=== PATIENT | male | born 1955 | race Caucasian/White ===

== ENCOUNTER 2024-04-17 11:08 | Outpatient (AMB) | payer OTHER, SELFPAY ==
--- NOTE | 2024-04-17 11:23 | MHC.PC.OV ---
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 Intake Note: patient here for new patient visit/ follow up Manager Agricultural Required: No Allergies Penicillins [PENICILLINS] Allergy (Unknown, Verified 04/17/24 11:26) UNKNOWN Tobacco use date assessed: 04/17/24 Fall risk assessment: 1 Fall in past year Last assessed Fall Risk: 04/17/24 Dental Screening Dental Screen Date: 04/17/24 Did you have a dental visit in the last 12 months?: Yes Did you have a dental problem in the last 6 months where you did not have access to dental care?: No Was dental information given to patient?: Patient has dentist HPI HPI Comments History of Present Illness Details This is a 68 year old male with a past medical history of type 2 dm, htn, obesity, fatty liver, depression presenting for follow up Type 2 DM: not checking sugars. Thinks its probably bad. Only on actos, glipizide. Intolerant of metformin. Prone tinea. GLP too expensive. Has not agreed to insulin. Having jock rash. also with non healing boil, pimple on hairline neck CV: Blood pressure higher today. on chlorthalidone 25mg daily. Intolerant MASTER/ARB ROS see HPI PHYSICAL EXAM: GENERAL: Alert and oriented x 3. NAD EYES: EOMI. Anicteric. HENT: Moist mucous membranes. No scleral icterus. No cervical lymphadenopathy. LUNGS: Clear to auscultation bilaterally. CARDIOVASCULAR: Regular rate and rhythm. No murmur. No JVD. ABDOMEN: Soft, non-tender +bs EXTREMITIES: No edema. Non-tender. SKIN: No rashes or lesions. Warm. NEUROLOGIC: No focal neurological deficits. CN II-XII grossly intact PSYCHIATRIC: Cooperative. Appropriate mood and affect [facility] Surgical History (Updated 04/17/24 @ 11:41 by Viky Forrest) H/O discectomy Hx of appendectomy Family History (Updated 04/17/24 @ 11:43 by Viky Forrest) Mother Diabetes Father Cardiovascular disease Social History Housing: House Patient Tobacco Use Status: Current everyday Tobacco user Tobacco use type: Cigar e-Cigarette/Vaping Use: Never Used Second Hand Smoke Exposure: No service: No Current occupational status: retired Current occupational exposures/hazards: No Cognitive needs: No Hearing needs: Yes Vision needs: Yes Questionnaire PHQ-9 Over the last 2 weeks, how often have you been bothered by any of the following problems? 1. Little interest or pleasure in doing things: not at all 2. Feeling down, depressed, or hopeless: not at all 3. Trouble falling or staying asleep, or sleeping too much: not at all 4. Feeling tired or having little energy: not at all 5. Poor appetite or overeating: not at all 6. Feeling bad about yourself - or that you are a failure or have let yourself or your family down: not at all 7. Trouble concentrating on things, such as reading the newspaper or watching television: not at all 8. Moving or speaking so slowly that other people could have noticed. Or the opposite - being so fidgety or restless that you have been moving around a lot more than usual: not at all 9. Thoughts that you would be better off or of hurting yourself in some way: not at all Total score: 0 Depression Screening Interpretation: Negative Depression Screening Done: Yes 71149 - PHQ-9 Billing: Yes Source: Developed by Drs. Ricardo Malni, Dee Mary, Fabio Coleman and colleagues, with an educational gerardo from [employer]. Thrive Questionnaire Date Thrive assessed: 04/17/24 I am a: Patient What is your living situation today?: I have a steady place to live Within the past 12 months, did the food you bought not last and you didn't have the money to get more?: Never true Within the past 12 months, did you worry whether your food would run out before you got money to buy more?: Never true Do you have trouble paying for medicines?: No Do you have trouble getting transportation to medical appointments?: No Do you have trouble paying your heating and electricity bill?: No Do you have trouble taking care of your child, family member or friend?: No Do you have trouble with day-to-day activities such as bathing, preparing meals, shopping, managing finances, etc.?: No Are you currently unemployed and looking for a job?: No Are you interested in more education?: No Please select the resources that you would like help with: None Currently or been in a relationship where the following occur: No concerns reported THRIVE Score: 0 AUDIT C Alcohol Use Questionnaire (AUDIT-C) 1. How often do you have a drink containing alcohol?: 4 or more times a week 2. How many drinks containing alcohol do you have on a typical day when you are drinking?: 1 or 2 3. How often do you have six or more drinks on one occasion?: Never Total Score: 4 ARELI-7 AMB Questionnaire ARELI-7 Date ARELI - 7 assessed: 04/17/24 Feeling nervous, anxious, or on edge: 0 = Not at all Not being able to stop or control worryin = Not at all Worrying too much about different things: 0 = Not at all Trouble relaxin = Not at all Being so restless that it is hard to sit still: 0 = Not at all Becoming easily annoyed or irritable: 0 = Not at all Feeling afraid as if something awful might happen: 0 = Not at all Total ARELI-7 score (0-4 normal; 5-9 mild; 10-14 moderate; 15-21 severe): 0 Source: Developed by Drs. Ricardo Malin, Dee Mary, Fabio Coleman and colleagues, with an educational gerardo from [employer]. ARELI-7 Assessment Billing ARELI-7 Assessment Tool: ARELI-7 Assessment 20549 Physical exam (Primary Care) Vital Signs: Last Vital Signs Temp 97.8 F 04/17/24 11:30 Pulse 76 04/17/24 11:30 Resp 16 04/17/24 11:30 BP 150/70 H 04/17/24 11:30 Pulse Ox 97 04/17/24 11:30 Oxygen Delivery Method Room Air 04/17/24 11:30 BMI result Body Mass Index 45.0 Tobacco/Smoking Status: Tobacco use Status Tobacco use date assessed 04/17/24 04/17/24 11:37 Patient Tobacco Use Status Current everyday Tobacco 04/17/24 11:37 Tobacco use type Cigar 04/17/24 11:37 e-Cigarette/Vaping Use Never Used 04/17/24 11:37 PHQ-9: PHQ-9 Score PHQ-9: Total score 0 04/17/24 11:39 Depression Screening Interpretation: Negative Thrive Assessment: Date of Thrive Assessment Date Thrive assessed 04/17/24 04/17/24 11:39 Currently or been in a relationship where the following occur: No concerns reported Assessment and Plan Assessment & Plan (1) Type 2 diabetes mellitus: Code(s): E11.9 - Type 2 diabetes mellitus without complications Qualifiers: Diabetes mellitus long term care pharmacist insulin use: with custodial use Diabetes mellitus complication status: with hyperglycemia Qualified Code(s): E11.65 - Type 2 diabetes mellitus with hyperglycemia; 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 start insulin. stop glipizide. continue actos (2) Hypertension: Code(s): I10 - Essential (primary) hypertension Qualifiers: Hypertension type: primary hypertension Qualified Code(s): I10 - Essential (primary) hypertension (3) Tinea cruris: Code(s): B35.6 - Tinea cruris Plan: fluconazole sent (4) Boil: Code(s): L02.92 - Furuncle, unspecified (5) Insulin use (long-term) in type 2 diabetes: Code(s): E11.9 - Type 2 diabetes mellitus without complications; 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 Qualifiers: Diabetes mellitus complication status: with neurologic complications Diabetes mellitus complication detail: with polyneuropathy Qualified Code(s): E11.42 - Type 2 diabetes mellitus with diabetic polyneuropathy; 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 Orders: Orders Complete Blood Count Auto Diff 04/17/24 B35.6 - Tinea cruris, E11.9 - Type 2 diabetes mellitus without complications, I10 - Essential (primary) hypertension, L02.92 - Furuncle, unspecified Comprehensive Met. Panel 04/17/24 B35.6 - Tinea cruris, E11.9 - Type 2 diabetes mellitus without complications, I10 - Essential (primary) hypertension, L02.92 - Furuncle, unspecified Hemoglobin A1c 04/17/24 B35.6 - Tinea cruris, E11.9 - Type 2 diabetes mellitus without complications, I10 - Essential (primary) hypertension, L02.92 - Furuncle, unspecified Lipid Panel 04/17/24 B35.6 - Tinea cruris, E11.9 - Type 2 diabetes mellitus without complications, I10 - Essential (primary) hypertension, L02.92 - Furuncle, unspecified Microalbumin, Random (w Creat) 04/17/24 B35.6 - Tinea cruris, E11.9 - Type 2 diabetes mellitus without complications, I10 - Essential (primary) hypertension, L02.92 - Furuncle, unspecified Medications: New fluconazole 150 mg PO DAILY 10 days 10 tabs 0RF insulin glargine (Lantus Solostar U-100 Insulin) 20 units (0.2 mL) subcut QAM 90 days 18 mL 3RF FreeStyle Lite Meter (blood-glucose meter) As directed 1 ea 0RF NS E11.9 - Type 2 diabetes mellitus without complications, 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 FreeStyle Lancets (lancets) As directed 100 ea 3RF NS E11.9 - Type 2 diabetes mellitus without complications doxycycline hyclate 100 mg PO BID 10 days 20 tabs 0RF BD Ultra-Fine Kathy Pen Needle (pen needle, diabetic) As directed 100 ea 3RF NS E11.9 - Type 2 diabetes mellitus without complications, Z79.4 - [facility] (current) use of insulin FreeStyle Lite Strips (blood sugar diagnostic) As directed 100 ea 3RF NS E11.9 - Type 2 diabetes mellitus without complications, Z79.4 - [facility] (current) use of insulin Coding Level of Care Code Est Pt Level 5 (59989) Diagnoses Type 2 diabetes mellitus with hyperglycemia, with long-term current use of insulin E11.65; Z79.4 Diabetes mellitus custodial insulin use: with custodial use Diabetes mellitus complication status: with hyperglycemia Primary hypertension I10 Hypertension type: primary hypertension Tinea cruris B35.6 Boil L02.92 Type 2 diabetes mellitus with diabetic polyneuropathy, with long-term current use of insulin E11.42; Z79.4 Diabetes mellitus complication status: with neurologic complications Diabetes mellitus complication detail: with polyneuropathy Additional Codes ARELI-7 Assessment Billing - ARELI-7 Assessment Tool: ARELI-7 Assessment [id number] ([id number])
[2024-04-17 11:30] VITALS: BP 150/70; PULSE 76; RESP 16; TEMP 36.6; O2SAT 97; BMI 45.0
== END 2024-04-17 13:33 | disposition home or self-care (01) ==
PROVIDERS: PCP Internal Medicine; Visit Provider Internal Medicine
DX: E11.65 Type 2 diabetes mellitus with hyperglycemia (principal); Z79.4 Long term (current) use of insulin; E11.42 Type 2 diabetes mellitus with diabetic polyneuropathy; I10 Essential (primary) hypertension; B35.6 Tinea cruris; L02.92 Furuncle, unspecified
CPT/HCPCS: 99214

== ENCOUNTER 2024-04-17 12:16 | Outpatient (REF) | payer OTHER, SELFPAY ==
[2024-04-17 14:16] LABS: MANUAL DIFF FLAG NO
[2024-04-17 14:25] LABS: Basophils Absolute Auto 0.1 X10*3/uL (0.0-0.2); Basophils Percent Auto 0.8 % (0-2); Eosinophils Absolute Auto 0.1 X10*3/uL (0.0-0.4); Eosinophils Percent Auto 1.8 % (0-4); Hematocrit 42.6 % (42.0-52.0); Hemoglobin 14.4 g/dl (14.0-18.0); Imm Gran Abs Auto 0.03 X10*3/uL (0.00-0.03); Imm Gran Pct Auto 0.5 % (0.0-0.4); Lymphocytes Absolute Auto 1.7 X10*3/uL (1.2-4.9); Lymphocytes Percent Auto 28.8 % (20-40); Mean Corpuscular HGB Conc 33.8 g/dl (31.0-36.0); Mean Corpuscular Hemoglobin 29.3 pg (27.0-33.0); Mean Corpuscular Volume 86.6 fL (80.0-98.0); Mean Platelet Volume 10.3 fL (9.4-12.4); Monocytes Absolute Auto 0.6 X10*3/uL (0.1-1.2); Monocytes Percent Auto 9.5 % (2-11); Neutrophils Absolute Auto 3.5 x10*3/uL (2.0-8.3); Neutrophils Percent Auto 58.6 % (45-73); Platelet Count 169 X10*3/uL (160-400); Red Blood Count 4.92 X10*6/uL (4.60-5.80); Red Cell Distribution Width 14.6 % (11.0-16.0)
[2024-04-17 14:36] LABS: Estimated Average Glucose 209 mg/dL; Hemoglobin A1c % 8.9 % (<6.0)
[2024-04-17 15:12] LABS: Alanine Aminotransferase 21 U/L (0-40); Alkaline Phosphatase 64 U/L (39-117); Anion Gap 13 (12-20); Aspartate Amino Transferase 14 U/L (5-37); Bilirubin Total 0.5 mg/dL (0.0-1.0); Blood Urea Nitrogen 25 mg/dL (9-16); Calcium 9.2 mg/dL (8.4-10.2); Carbon Dioxide 28 mmol/L (22-29); Chloride 99 mmol/L (96-108); Cholesterol 154 mg/dL (<200); Estimated Glomerular Filt Rate 50; Glucose Random 255 mg/dL (60-115); HDL Cholesterol 48 mg/dL (>40); LDL Cholesterol Calculated 90 mg/dL (<100); Sodium 136 mmol/L (135-145); Total Protein 6.7 g/dL (6.5-8.0); Triglycerides 82 mg/dL (<150)
== END 2024-04-17 12:17 | disposition home or self-care (01) ==
LOC: HO.WFDLDS 12:16
PROVIDERS: Visit Provider Internal Medicine
DX: I10 Essential (primary) hypertension (principal); E11.9 Type 2 diabetes mellitus without complications; B35.6 Tinea cruris; L02.92 Furuncle, unspecified
CPT/HCPCS: 36415; 80053; 80061; 83036; 85025

== ENCOUNTER 2024-04-28 13:57 | Outpatient (REF) | payer OTHER, SELFPAY ==
[2024-04-28 14:42] LABS: Creatinine Urine 28.97 mg/dL; Microalbum/Creatinine Ratio Ur 44.8 ug/mg cr (<30)
== END 2024-04-28 13:58 | disposition home or self-care (01) ==
LOC: HO.LNP 13:57
PROVIDERS: Visit Provider Internal Medicine
DX: I10 Essential (primary) hypertension (principal); E11.9 Type 2 diabetes mellitus without complications; B35.6 Tinea cruris; L02.92 Furuncle, unspecified
CPT/HCPCS: 82043; 82570

== ENCOUNTER 2024-10-02 12:55 | Outpatient (AMB) | payer OTHER, SELFPAY ==
--- NOTE | 2024-10-02 13:04 | A.OFFVIS_ITS ---
Vital Signs 10/02/24 13:05 Height 6 ft Weight 326 lb 4.546 oz BMI 44.2 BP 140/80 H Blood Pressure Location Rt brachial Position Sitting Pulse 85 Pulse Source Pulse Oximeter Intake Visit Reasons: Type 2 diabetes mellitus-confirmed Intake Note: NEW Patient presents today to establish treatment for Type 2 Diabetes Mellitus: Last Diabetic eye exam was on: DUE Last Podiatry exam was on: Does not see a [employer]aker Most recent HbA1c: 9.3%, 10/02/2024 Random Glucose- 203 mg/dL, Today Violin Mechanic Required: No Accompanied by: Self / Same As Patient Allergies Penicillins [PENICILLINS] Allergy (Unknown, Verified 10/02/24 13:29) UNKNOWN HPI Comments Details: This is a 68-year-old male with a past medical history of obstructive sleep apnea on CPAP, uncontrolled type 2 diabetes, tinea cruris, hypertension and hyperlipidemia presenting for an initial consult for diabetic management. The patient has a glucometer, but he does not check his blood sugar. Hemoglobin a1c 9.3% 10/02/2024. Current regimen: He takes pioglitazone 45 mg once daily. He took Mounjaro, but the co-pay was 200 dollars per month. The same thing happened with TrulicPlaydom. He tried to go through [facility], but he was not eligible. Glipizide was stopped to start insulin. He was on Lantus, but he discontinued it in June because he had a rash in his groin. Patient says he does get frequent tinea and sometimes boils. He felt that the Lantus caused an exacerbation of this. He had diarrhea on Metformin. He does not recall if it was immediate release or extended release. He was on Januvia, but he reports this also caused adverse side effects. Compliance issues: He is compliant with pioglitazone. Patient has carbohydrates and proteins. He enjoys drinking scotch. He does not exercise consistently. Hypoglycemia symptoms: None Hyperglycemia symptoms: Polyuria Eye exam: Up-to-date and no retinopathy per patient Microvascular complications: neuropathy, nephropathy (recent tests consistent with CKD stage IIIA and microalbuminuria) Macrovascular complications: None Hypertension: treated with chlorthalidone 25 mg. Blood pressure is uncontrolled. His blood pressure today is 140/80, and it was 150/70 on 04/17/2024. Hyperlipidemia: treated with Pravastatin, but he stopped taking in June. He will restart it. Patient endorses chronic discoloration of his toenail on the left side and toenail fungus on the right. He also has chronic redness around the left toenail. He has an appointment with the criminal defense lawyer at [place] on 10/28/2024. ROS: Constitutional: No unexplained weight loss, fevers, chills or fatigue. Eyes: No vision changes Respiratory: No shortness of breath Cardiovascular: No chest pain Gastrointestinal: No anorexia, nausea, vomiting or diarrhea. No abdominal pain Neurologic: +numbness, tingling and burning in his feet. Skin: No open wound. Physical exam: Constitutional: Alert, in no distress. Neck: Supple, Full range of motion. No lymphadenopathy. Respiratory: Clear to auscultation. Cardiovascular: S1 S2 regular. No murmurs. Right foot: Warm and well perfused. No clubbing, cyanosis or edema. Severely decreased vibratory sensation. Absent sensation to monofilament in the great toe. The right great toenail is thickened, yellowish and deformed. Left foot: Warm and well perfused. No clubbing, cyanosis or edema. Absent vibratory sensation. Absent sensation to monofilament in the great toe. The left great toenail is thickened and yellowish, and there is dark brown discoloration of most of the nail. [facility] Medical History (Updated 10/02/24 @ 14:31 by KOMAL Allison) Hyperlipidemia Uncontrolled type 2 diabetes mellitus with hyperglycemia, with long-term current use of insulin Diabetic nephropathy Surgical History (Updated 04/17/24 @ 11:41 by Viky Forrest MA) H/O discectomy Hx of appendectomy Family History (Updated 04/17/24 @ 11:43 by Viky Forrest MA) Mother Diabetes Father Cardiovascular disease Social History Housing: House Patient Tobacco Use Status: Current everyday Tobacco user Tobacco use type: Cigar e-Cigarette/Vaping Use: Never Used Second Hand Smoke Exposure: No service: No Current occupational status: retired Current occupational exposures/hazards: No Cognitive needs: No Hearing needs: Yes Vision needs: Yes Physical Exam Vital Signs: Last Vital Signs Pulse 85 10/02/24 13:05 BP 140/80 H 10/02/24 13:05 BMI result Body Mass Index 44.2 Results AMB Hemoglobin A1c AMB Hemoglobin A1c 9.3 % Last Edit by LARRY Howell on 10/02/24 13:27 Results Reviewed Results Reviewed: Laboratory Last Values Glucose (Clinic) 203 mg/dL (60-115) H 10/02/24 13:10 Laboratory Tests 04/17/24 04/28/24 10/02/24 12:18 10:57 13:27 Creatinine 1.41 H Estimated GFR 50 Hgb A1c (Clinic) 9.3 H Hemoglobin A1c % 8.9 H AST 14 ALT 21 Triglycerides 82 Cholesterol 154 LDL Cholesterol, Calc 90 HDL Cholesterol 48 Urine Creatinine 28.97 Urine Microalbumin 13.0 Microalb/Creat Ratio 44.8 H Assessment & Plan Assessment & Plan (1) Uncontrolled type 2 diabetes mellitus with hyperglycemia, with long-term current use of insulin: Code(s): E11.65 - Type 2 diabetes mellitus with hyperglycemia; 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.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 Category: Medical (2) Diabetic nephropathy: Code(s): E11.21 - Type 2 diabetes mellitus with diabetic nephropathy Category: Medical Qualifiers: Diabetes mellitus type: type 2 Qualified Code(s): E11.21 - Type 2 diabetes mellitus with diabetic nephropathy (3) Hypertension: Code(s): I10 - Essential (primary) hypertension Category: Medical Qualifiers: Hypertension type: primary hypertension Qualified Code(s): I10 - Essential (primary) hypertension (4) Hyperlipidemia: Code(s): E78.5 - Hyperlipidemia, unspecified Category: Medical Qualifiers: Hyperlipidemia type: pure hypercholesterolemia Qualified Code(s): E78.00 - Pure hypercholesterolemia, unspecified Plan In summary this is a 68-year-old male with uncontrolled type 2 diabetes with microvascular complications. Discussed pathophysiology of Type II Diabetes Mellitus with the patient in detail.? I explained the intermodal customer service risks and complications associated with uncontrolled diabetes including nephropathy, neuropathy, peripheral vascular disease, retinopathy, increased risk of heart disease and stroke.? Discussed lifestyle modification with the patient. Medication options are somewhat limited due to history of adverse reactions and high co-pay for GLP1. Continue pioglitazone 45 mg once daily. Start Tresiba 10 units nightly. We may consider trial of metformin extended release if he was on immediate release in the past which caused stomach upset, but we would need to confirm that immediate release is what he took. Patient prone to yeast infections and therefore not a great candidate for SGLT2 at this time. If this problem resolves with improved glycemic control we can reconsider it. He does have nephropathy. I have submitted a prescription for the CGM. This requires prior authorization. Instructed to call when he receives it from the pharmacy to set up an appointment with the nurse informatics educator. He declined referral to nurse informatics educator at this time. Declines referral to dietitian. If patient does not have CGM he is not willing to be compliant with fingerstick glucometer monitoring. He does agree to check fasting sugars daily for the week prior to her next visit if he does not have CGM for the sake of assessing his response to insulin. If you experience low blood sugar, treat this by eating a chewable fruit candy like skittles or jelly beans (about 8 pieces), 4 ounces (1/2 cup) of fruit juice (not diet), 1 tablespoon of honey or 4 glucose tablets. If your blood sugar is under 50, take double the amount of one of the above. Recheck your blood sugar in 15 minutes. Restart Pravastatin 20 mg. Start losartan 25 mg daily for uncontrolled hypertension and renal protection. Side effects reviewed with the patient including hyperkalemia and angioedema. Patient will have lab work done in 6 weeks to re-evaluate lipid profile back on the statin and check renal function and potassium on losartan. Screening BNP level ordered. A podiatry appointment scheduled 10/28/2024. Follow up in 4 weeks for type 2 diabetes. Orders: Orders AMB Hemoglobin A1c Today E11.65 - Type 2 diabetes mellitus with hyperglycemia, Z79.4 - residential (current) use of insulin B Type Natriuretic Peptide 6 Weeks E11.42 - Type 2 diabetes mellitus with diabetic polyneuropathy, E11.9 - Type 2 diabetes mellitus without complications, Z79.4 - residential (current) use of insulin Comprehensive Met. 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 Start Tresiba 10 units nightly. I have submitted a prescription for the CGM. This requires prior authorization. If you receive the sensors and reader from the pharmacy, please call the office to set up an appointment with the nurse informatics educator. If you experience low blood sugar, treat this by eating a chewable fruit candy like skittles or jelly beans (about 8 pieces), 4 ounces (1/2 cup) of fruit juice (not diet), 1 tablespoon of honey or 4 glucose tablets. If your blood sugar is under 50, take double the amount of one of the above. Recheck your blood sugar in 15 minutes. Restart Pravastatin 20 mg. Start Losartan 25 mg daily for blood pressure. Please have labwork done fasting in 6 weeks. Please check fasting blood sugar daily for 1 week prior to next visit. Coding Level of Care Code New Pt Level 5 (15967) Complex EM visit Add On G2211 Diagnoses Uncontrolled type 2 diabetes mellitus with hyperglycemia, with long-term current use of insulin E11.65; Z79.4 Diabetic nephropathy associated with type 2 diabetes mellitus E11.21 Diabetes mellitus type: type 2 Primary hypertension I10 Hypertension type: primary hypertension Pure hypercholesterolemia E78.00 Hyperlipidemia type: pure hypercholesterolemia Time Spent (min) 65 Comment Chart review, direct patient care, completing documentation
[2024-10-02 13:05] VITALS: BP 140/80; PULSE 85; BMI 44.2
[2024-10-02 13:15] LABS: Glucose, Whole Blood 203 mg/dL (60-115)
== END 2024-10-02 14:04 | disposition home or self-care (01) ==
PROVIDERS: PCP Internal Medicine; Visit Provider Physician Assistant Medical
DX: E11.65 Type 2 diabetes mellitus with hyperglycemia (principal); Z79.4 Long term (current) use of insulin; E11.21 Type 2 diabetes mellitus with diabetic nephropathy; I10 Essential (primary) hypertension; E78.00 Pure hypercholesterolemia, unspecified

== ENCOUNTER 2024-11-19 10:27 | Outpatient (REF) | payer OTHER, SELFPAY ==
[2024-11-19 14:02] LABS: B Type Natriuretic Peptide 12 pg/mL (<100)
[2024-11-19 14:53] LABS: Alanine Aminotransferase 21 U/L (0-40); Albumin Level 4.3 g/dL (3.5-5.0); Alkaline Phosphatase 47 U/L (39-117); Anion Gap 11 (12-20); Aspartate Amino Transferase 19 U/L (5-37); Bilirubin Total 0.4 mg/dL (0.0-1.0); Blood Urea Nitrogen 16 mg/dL (9-16); Carbon Dioxide 30 mmol/L (22-29); Chloride 100 mmol/L (96-108); Cholesterol 171 mg/dL (<200); Estimated Glomerular Filt Rate 59; Glucose Random 123 mg/dL (60-115); HDL Cholesterol 51 mg/dL (>40); LDL Cholesterol Calculated 109 mg/dL (<100); Potassium 3.7 mmol/L (3.3-5.1); Sodium 137 mmol/L (135-145); Total Protein 7.3 g/dL (6.5-8.0); Triglycerides 55 mg/dL (<150)
== END 2024-11-19 10:28 | disposition home or self-care (01) ==
LOC: HO.WFDLDS 10:27
PROVIDERS: Visit Provider Physician Assistant Medical
DX: E11.42 Type 2 diabetes mellitus with diabetic polyneuropathy (principal); Z79.4 Long term (current) use of insulin; E78.5 Hyperlipidemia, unspecified
CPT/HCPCS: 36415; 80053; 80061; 83880

== ENCOUNTER 2024-11-20 12:51 | Outpatient (AMB) | payer OTHER, SELFPAY ==
--- NOTE | 2024-11-20 12:53 | MHC.OFFVIS ---
Vital Signs 11/20/24 12:56 Height 6 ft Weight 339 lb 8.19 oz BMI 46.0 BP 112/62 Blood Pressure Location Rt brachial Position Sitting Pulse 72 Pulse Source Pulse Oximeter Intake Visit Reasons: Type II diabetes Intake Note: Patient present today to follow up on Type 2 Diabetes Mellitus. Patient c/o of gaining a lot of weight since being on insulin, will like to discuss this. Last Diabetic Eye exam: Due Last Podiatry Visit: Does not see a African Studies Professor Random Glucose: 113 mg/dl HgA1C: 9.3% 10/02/2024 Natural Gas Trader Required: No Accompanied by: Spouse Allergies Penicillins [PENICILLINS] Allergy (Unknown, Verified 11/20/24 13:02) UNKNOWN insulin glargine [From Lantus U-100 Insulin] Allergy (Verified 11/20/24 13:02) Rash Medication List - Last Reconciled 11/20/24 by KOMAL Allison aspirin (Adult Low Dose Aspirin) 81 mg PO DAILY BD Kathy 2nd Gen Pen Needle (pen needle, diabetic) 1 ea miscellaneous .once daily NS blood-glucose meter,continuous (FreeStyle Sonya 3 Cresco) Use daily to monitor blood glucose levels continuously. blood-glucose sensor (FreeStyle Sonya 3 Sensor device) apply new sensor every 14 days chlorthalidone 25 mg PO DAILY clotrimazole-betamethasone 1-0.05 % 1 appl topical BID 4 weeks CPAP (CPAP Machine/Device) AIRFIT F20 head medium REF [id number] AIRFIT F20 Cushion REF [id number] CPAP SlimTube 6ft 15mm with 22mm cuffs REF [id number] CPAP Pollen Filters REF [id number] 2 felt pollen filter for ResMed Air 11 Continuous for sleep fluconazole 150 mg PO DAILY 10 days fluoxetine 40 mg PO DAILY fluoxetine 20 mg PO DAILY FreeStyle Lancets (lancets) three times perday for blood glucose monitoring NS FreeStyle Lite Meter (blood-glucose meter) As directed for blood glucose monitoring three times /day NS glucose (Dex4 Glucose) 16 grams (4 x 4 gram) PO Q15M PRN insulin degludec (Tresiba FlexTouch U-100 insulin) 32 units subcut BEDTIME lancets check blood glucose 3 times daily losartan 25 mg PO DAILY omeprazole 20 mg PO BID pioglitazone 45 mg PO DAILY pravastatin 20 mg PO DAILY HPI Comments Details: This is a 69-year-old male with a past medical history of obstructive sleep apnea on CPAP, uncontrolled type 2 diabetes, tinea cruris, hypertension and hyperlipidemia presenting for an initial consult for diabetic management. He is here with his , Hannah. Reviewed Sonya 3 download CGM active 81% Average glucose 145 G SD 6.8% Glucose variability 24.5% Target range 84% High 16% 0% over 250, 0% hypoglycemia There is a pattern of postprandial hyperglycemia in the afternoon Hemoglobin a1c 9.3% 10/02/2024. Current regimen: He takes pioglitazone 45 mg once daily and Tresiba 32 units. He has gained weight since starting insulin. Past medications: Glipizide was stopped to start insulin. Lantus discontinued due to skin rash. He had diarrhea on Metformin. He was on Januvia, but he reports this also caused adverse side effects. Compliance issues: None. He does not exercise consistently. He does want to work more on his diet, but he has cut down on sugary things and carbohydrates, and he also stopped drinking scotch except for when they go out socially. Hypoglycemia symptoms: None Hyperglycemia symptoms: Polyuria Eye exam: Up-to-date and no retinopathy per patient Microvascular complications: neuropathy, nephropathy (CKD stage IIIA and microalbuminuria) Macrovascular complications: None Hypertension: treated with chlorthalidone 25 mg and started losartan 25 mg daily. BP 112/62 down from 140/80. Hyperlipidemia: treated with Pravastatin, and his LDL cholesterol is 109. Patient reports he was told a few years ago that he has fatty liver. ROS: Constitutional: No unexplained weight loss, fevers, chills or fatigue. Eyes: No vision changes Respiratory: No shortness of breath Cardiovascular: No chest pain Gastrointestinal: No anorexia, nausea, vomiting or diarrhea. No abdominal pain Neurologic: +numbness, tingling and burning in his feet. Skin: No open wound. Physical exam: Constitutional: Alert, in no distress. Neck: Supple, Full range of motion. No lymphadenopathy. Respiratory: Clear to auscultation. Cardiovascular: S1 S2 regular. No murmurs. [facility] Medical History (Updated 11/20/24 @ 13:52 by KOMAL Allison) Hepatic steatosis Hyperlipidemia Uncontrolled type 2 diabetes mellitus with hyperglycemia, with long-term current use of insulin Diabetic nephropathy Surgical History H/O discectomy Hx of appendectomy Family History Mother Diabetes Father Cardiovascular disease Social History Housing: House Patient Tobacco Use Status: Current everyday Tobacco user Tobacco use type: Cigar e-Cigarette/Vaping Use: Never Used Second Hand Smoke Exposure: No service: No Current occupational status: retired Current occupational exposures/hazards: No Cognitive needs: No Hearing needs: Yes Vision needs: Yes Physical Exam Vital Signs: Last Vital Signs Pulse 72 11/20/24 12:56 BP 112/62 11/20/24 12:56 BMI result Body Mass Index 46.0 Office Procedures Glucose Monitoring Details Details: see HPI [id number] - Glucose monitoring, continuous-physician I&R Procedure code (CPT) selection complete Results Reviewed Results Reviewed: Laboratory Last Values Glucose (Clinic) 113 mg/dL (60-115) 11/20/24 13:09 Laboratory Tests 04/28/24 11/19/24 10:57 10:35 Creatinine 1.22 Estimated GFR 59 AST 19 ALT 21 Triglycerides 55 Cholesterol 171 LDL Cholesterol, Calc 109 H HDL Cholesterol 51 Urine Creatinine 28.97 Urine Microalbumin 13.0 Microalb/Creat Ratio 44.8 H Assessment & Plan Assessment & Plan (1) Diabetic nephropathy: Code(s): E11.21 - Type 2 diabetes mellitus with diabetic nephropathy Category: Medical Qualifiers: Diabetes mellitus type: type 2 Qualified Code(s): E11.21 - Type 2 diabetes mellitus with diabetic nephropathy (2) Uncontrolled type 2 diabetes mellitus with hyperglycemia, with long-term current use of insulin: Code(s): E11.65 - Type 2 diabetes mellitus with hyperglycemia; Z79.4 - detention (current) use of insulin Category: Medical (3) Hypertension: Code(s): I10 - Essential (primary) hypertension Category: Medical Qualifiers: Hypertension type: primary hypertension Qualified Code(s): I10 - Essential (primary) hypertension (4) Hyperlipidemia: Code(s): E78.5 - Hyperlipidemia, unspecified Category: Medical Qualifiers: Hyperlipidemia type: pure hypercholesterolemia Qualified Code(s): E78.00 - Pure hypercholesterolemia, unspecified Plan In summary this is a 68-year-old male with uncontrolled type 2 diabetes with microvascular complications. Discussed pathophysiology of Type II Diabetes Mellitus with the patient in detail.? I explained the intermediate manager risks and complications associated with uncontrolled diabetes including nephropathy, neuropathy, peripheral vascular disease, retinopathy, increased risk of heart disease and stroke.? Discussed lifestyle modification with the patient. Patient declined referral to dietitian and clinical trial educator. Printed information about diabetic diet and plate planning given to the patient. He endorses weight gain on Tresiba but is pleased with the improvement in his blood sugars. I am going to submit Ozempic to the pharmacy. Denies contraindications to GLP 1. Side effects and administration reviewed. If he starts Ozempic he can reduce Tresiba to 28 units. Continue pioglitazone 45 mg once daily. Patient prone to yeast infections and therefore not a great candidate for SGLT2 at this time. If this problem resolves with improved glycemic control we can reconsider it. He does have nephropathy. Bring glucometer to all appointments. If you experience low blood sugar, treat this by eating a chewable fruit candy like skittles or jelly beans (about 8 pieces), 4 ounces (1/2 cup) of fruit juice (not diet), 1 tablespoon of honey or 4 glucose tablets. If your blood sugar is under 50, take double the amount of one of the above. Recheck your blood sugar in 15 minutes. He has glucose tablets at home. Increase pravastatin to 40 mg daily. Continue chlorthalidone for hypertension. Continue losartan for hypertension and renal protection. Ordered liver ultrasound with elastography. Follow up in 4 weeks for type 2 diabetes. Orders: Orders US abdomen ludwig w elastography Today E11.65 - Type 2 diabetes mellitus with hyperglycemia, K76.0 - Fatty (change of) liver, not elsewhere classified, Z79.4 - detention (current) use of insulin AMB Glucose Monitoring Today E11.9 - Type 2 diabetes mellitus without complications Medications: New semaglutide (Ozempic) for 4 weeks 0.25 mg (0.368 mL) subcut QWEEK 3 mL 0RF Changed From insulin degludec (Tresiba FlexTouch U-100 insulin) 32 units subcut BEDTIME To Tresiba FlexTouch U-100 (insulin degludec) 32 units (0.32 mL) subcut BEDTIME 15 mL 5RF NS Patient Instructions: Start ozempic 0.25 mg weekly and reduce Tresiba to 28 units when you start Ozempic. Continue Actos 45 mg daily. If you don't receive Ozempic in 2 weeks from the pharmacy send me a message. You will be called to schedule a liver ultrasound. If you experience low blood sugar, treat this by eating a chewable fruit candy like skittles or jelly beans (about 8 pieces), 4 ounces (1/2 cup) of fruit juice (not diet), 1 tablespoon of honey or 4 glucose tablets. If your blood sugar is under 50, take double the amount of one of the above. Recheck your blood sugar in 15 minutes. Coding Level of Care Code Est Pt Level 5 (55931) Diagnoses Diabetic nephropathy associated with type 2 diabetes mellitus E11.21 Diabetes mellitus type: type 2 Uncontrolled type 2 diabetes mellitus with hyperglycemia, with long-term current use of insulin E11.65; Z79.4 Primary hypertension I10 Hypertension type: primary hypertension Pure hypercholesterolemia E78.00 Hyperlipidemia type: pure hypercholesterolemia CPT Codes Details - CPT: 44277 - Glucose monitoring, continuous-physician I&R ([id number]) Time Spent (min) 55 Comment Direct patient care and completing documentation
[2024-11-20 12:56] VITALS: BP 112/62; PULSE 72; BMI 46.0
[2024-11-20 13:19] LABS: Glucose, Whole Blood 113 mg/dL (60-115)
== END 2024-11-20 13:46 | disposition home or self-care (01) ==
PROVIDERS: PCP Internal Medicine; Visit Provider Physician Assistant Medical
DX: E11.21 Type 2 diabetes mellitus with diabetic nephropathy (principal); E11.65 Type 2 diabetes mellitus with hyperglycemia; Z79.4 Long term (current) use of insulin; I10 Essential (primary) hypertension; E78.00 Pure hypercholesterolemia, unspecified

== ENCOUNTER → 2024-11-20 12:51 | Outpatient (BNVA) | payer OTHER, SELFPAY | PROVIDERS: PCP Internal Medicine; Visit Provider Physician Assistant Medical | DX: E11.21 Type 2 diabetes mellitus with diabetic nephropathy (principal); E11.65 Type 2 diabetes mellitus with hyperglycemia; I10 Essential (primary) hypertension; E78.00 Pure hypercholesterolemia, unspecified; Z79.4 Long term (current) use of insulin; Z79.899 Other long term (current) drug therapy | CPT/HCPCS: 82947 ==

== ENCOUNTER 2024-12-18 13:03 | Outpatient (AMB) | payer OTHER, SELFPAY ==
--- NOTE | 2024-12-18 13:07 | A.OFFVIS_ITS ---
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 He is here with his , Hannah. CGM active 97% Average glucose 146 G AL 6.8% Very high 3% High 14% Target range 83% 0% hypoglycemia There is a pattern of postprandial hyperglycemia in the afternoon and evening sometimes. Hemoglobin a1c 9.3% 10/02/2024. Current regimen: He takes pioglitazone 45 mg once daily and Tresiba 32 units. He gained weight on insulin, but he has lost 4 pounds since his last visit. I prescribed Ozempic, and we submitted an appeal to his insurance a few days ago. Past medications: Glipizide was stopped to start insulin. Lantus discontinued due to skin rash. He had diarrhea on Metformin. He was on Januvia, but he reports this also caused adverse side effects. Compliance issues: None. He does not exercise consistently. He does want to work more on his diet, but he has cut down on sugary things and carbohydrates, and he also stopped drinking scotch except for when they go out socially. Hypoglycemia symptoms: None Hyperglycemia symptoms: Polyuria Eye exam: Up-to-date and no retinopathy per patient Microvascular complications: neuropathy, nephropathy (CKD stage IIIA and microalbuminuria) Macrovascular complications: None Hypertension: treated with chlorthalidone 25 mg and started losartan 25 mg daily. BP 112/62 down from 140/80. Hyperlipidemia: treated with Pravastatin, and his LDL cholesterol was 109. I instructed him to increase to 40mg, but he did not do that yet. Patient reports he was told a few years ago that he has fatty liver. He has a liver ultrasound scheduled next week. ROS: Constitutional: No unexplained weight loss, fevers, chills or fatigue. Eyes: No vision changes Respiratory: No shortness of breath Cardiovascular: No chest pain Gastrointestinal: No anorexia, nausea, vomiting or diarrhea. No abdominal pain Neurologic: +numbness, tingling and burning in his feet. Skin: No open wound. Physical exam: Constitutional: Alert, in no distress. Neck: Supple, Full range of motion. No lymphadenopathy. Respiratory: Clear to auscultation. Cardiovascular: S1 S2 regular. No murmurs. [facility] Medical History Hepatic steatosis Hyperlipidemia Uncontrolled type 2 diabetes mellitus with hyperglycemia, with long-term current use of insulin Diabetic nephropathy Surgical History H/O discectomy Hx of appendectomy Family History Mother Diabetes Father Cardiovascular disease Social History Housing: House Patient Tobacco Use Status: Current everyday Tobacco user Tobacco use type: Cigar e-Cigarette/Vaping Use: Never Used Second Hand Smoke Exposure: No service: No Current occupational status: retired Current occupational exposures/hazards: No Cognitive needs: No Hearing needs: Yes Vision needs: Yes Physical Exam Vital Signs: Last Vital Signs Pulse 69 12/18/24 13:08 BP 120/70 12/18/24 13:08 Pulse Ox 98 12/18/24 13:08 Oxygen Delivery Method Room Air 12/18/24 13:08 BMI result Body Mass Index 45.4 Office Procedures Glucose Monitoring Details Details: see HPI [id number] - Glucose monitoring, continuous-physician I&R Procedure code (CPT) selection complete Results Reviewed Results Reviewed: Laboratory Tests 04/28/24 11/19/24 10:57 10:35 Creatinine 1.22 Estimated GFR 59 AST 19 ALT 21 Triglycerides 55 Cholesterol 171 LDL Cholesterol, Calc 109 H HDL Cholesterol 51 Urine Creatinine 28.97 Urine Microalbumin 13.0 Microalb/Creat Ratio 44.8 H Assessment & Plan Assessment & Plan (1) Diabetic nephropathy: Code(s): E11.21 - Type 2 diabetes mellitus with diabetic nephropathy Category: Medical Qualifiers: Diabetes mellitus type: type 2 Qualified Code(s): E11.21 - Type 2 diabetes mellitus with diabetic nephropathy (2) Uncontrolled type 2 diabetes mellitus with hyperglycemia, with long-term current use of insulin: Code(s): E11.65 - Type 2 diabetes mellitus with hyperglycemia; Z79.4 - detention (current) use of insulin Category: Medical (3) Hypertension: Code(s): I10 - Essential (primary) hypertension Category: Medical Qualifiers: Hypertension type: primary hypertension Qualified Code(s): I10 - Essential (primary) hypertension (4) Hyperlipidemia: Code(s): E78.5 - Hyperlipidemia, unspecified Category: Medical Qualifiers: Hyperlipidemia type: pure hypercholesterolemia Qualified Code(s): E78.00 - Pure hypercholesterolemia, unspecified Plan In summary this is a 69-year-old male with uncontrolled type 2 diabetes with microvascular complications. Discussed pathophysiology of Type II Diabetes Mellitus with the patient in detail.? I explained the alf risks and complications associated with uncontrolled diabetes including nephropathy, neuropathy, peripheral vascular disease, retinopathy, increased risk of heart disease and stroke.? Discussed lifestyle modification with the patient. Patient declined referral to dietitian and nurse informatics educator. He endorses weight gain on Tresiba but is pleased with the improvement in his blood sugars. Waiting on appeal decision for Ozempic. If he starts Ozempic he can reduce Tresiba to 28 units and will notify me via the portal. Continue pioglitazone 45 mg once daily. Bring glucometer to all appointments. If you experience low blood sugar, treat this by eating a chewable fruit candy like skittles or jelly beans (about 8 pieces), 4 ounces (1/2 cup) of fruit juice (not diet), 1 tablespoon of honey or 4 glucose tablets. If your blood sugar is under 50, take double the amount of one of the above. Recheck your blood sugar in 15 minutes. He has glucose tablets at home. Increase pravastatin to 40 mg daily. Continue chlorthalidone for hypertension. Continue losartan for hypertension and renal protection. Ordered liver ultrasound with elastography. This is scheduled 12/25/24. Follow up in 3 months for type 2 diabetes. Orders: Orders AMB Glucose Monitoring Today E11.9 - Type 2 diabetes mellitus without complications Medications: New pravastatin 40 mg PO BEDTIME 90 tabs 3RF Refilled Tresiba FlexTouch U-100 (insulin degludec) 32 units (0.32 mL) subcut BEDTIME 15 mL 5RF NS Discontinued pravastatin Discontinued Reason: Doctor's Order 20 mg PO DAILY 90 tabs 3RF Coding Level of Care Code Est Pt Level 4 (18990) Diagnoses Diabetic nephropathy associated with type 2 diabetes mellitus E11.21 Diabetes mellitus type: type 2 Uncontrolled type 2 diabetes mellitus with hyperglycemia, with long-term current use of insulin E11.65; Z79.4 Primary hypertension I10 Hypertension type: primary hypertension Pure hypercholesterolemia E78.00 Hyperlipidemia type: pure hypercholesterolemia CPT Codes Details - CPT: 88547 - Glucose monitoring, continuous-physician I&R ([id number])
[2024-12-18 13:08] VITALS: BP 120/70; PULSE 69; O2SAT 98; BMI 45.4
[2024-12-18 13:21] LABS: Glucose, Whole Blood 103 mg/dL (60-115)
== END 2024-12-18 13:41 | disposition home or self-care (01) ==
PROVIDERS: PCP Internal Medicine; Visit Provider Physician Assistant Medical
DX: E11.21 Type 2 diabetes mellitus with diabetic nephropathy (principal); E11.65 Type 2 diabetes mellitus with hyperglycemia; Z79.4 Long term (current) use of insulin; I10 Essential (primary) hypertension; E78.00 Pure hypercholesterolemia, unspecified

== ENCOUNTER → 2024-12-18 13:03 | Outpatient (BNVA) | payer OTHER, SELFPAY | PROVIDERS: PCP Internal Medicine; Visit Provider Physician Assistant Medical | DX: E11.21 Type 2 diabetes mellitus with diabetic nephropathy (principal); E11.65 Type 2 diabetes mellitus with hyperglycemia; I10 Essential (primary) hypertension; E78.00 Pure hypercholesterolemia, unspecified; Z79.4 Long term (current) use of insulin; Z79.899 Other long term (current) drug therapy | CPT/HCPCS: 82947 ==

== ENCOUNTER 2024-12-25 08:24 | Outpatient (REF) | payer OTHER, SELFPAY ==
--- NOTE | ~2024-12-25 | US_ITS ---
EXAMINATION: US ABDOMEN LIMITED WITH LIVER ELASTOGRAPHY HISTORY: STEATOSIS OF LIVER TECHNIQUE: Real-time grayscale ultrasound imaging of the abdomen was performed and images were reviewed. COMPARISON: There are no prior studies for comparison. FINDINGS: Liver: The right lobe of the liver measures 18.8 cm in size. The left lobe of the liver measures 10.4 cm in size. The liver demonstrates increased echotexture, consistent with steatosis. No focal mass or intrahepatic biliary ductal dilatation is identified. There is normal hepatopedal flow in the portal vein. Ultrasound elastography of the liver was performed with 10 separate measurements of the liver parenchyma with the patient in the supine position. Measurements were obtained approximately 2 cm below Daksha's capsule and perpendicular to the capsule. Images are of satisfactory quality. The median shear wave velocity is 1.35 m/s. The interquartile range/median (IQR/median) is 0.20. Gallbladder and biliary tree: The gallbladder is unremarkable, without evidence of calculi, wall thickening, or pericholecystic fluid. There is no sonographic Ferrara sign. The common bile duct is normal in caliber measuring 6 mm. Right kidney: The right kidney measures 12.4 cm in length. There is no evidence of masses, hydronephrosis, or calculi. Pancreas: The pancreas is obscured by bowel gas. Abdominal aorta and inferior vena cava: The visualized portions of the abdominal aorta and inferior vena cava are normal in caliber. There is no free fluid in the abdomen. US/US abdomen ludwig w elastography IMPRESSION: Hepatomegaly and hepatic steatosis. The median shear wave velocity in the liver is 1.35 m/s, corresponding to a median liver stiffness of 5.52 kPa. The IQR/median value is 0.20. This is indicative of a poor quality data set, and the estimated liver stiffness may be unreliable. Findings are indicative of a low elastography value which rules out advanced chronic liver disease in asymptomatic patients. REFERENCE: Society of Radiologists in Ultrasound Liver Stiffness Thresholds (2020): LIVER STIFFNESS THRESHOLDS: *Shear wave velocity less than 1.3 m/s (Liver Stiffness equal or less than 5 kPa): High probability of being normal. *Shear wave velocity less than 1.7 m/s (Liver Stiffness less than 9 kPa): In the absence of other known clinical signs, rules out compensated advanced chronic liver disease. *Shear wave velocity between 1.7-2.1 m/s (Liver Stiffness 9-13 kPa): Suggestive of compensated advanced chronic liver disease but need further test for confirmation. *Shear wave velocity between 2.1-2.4 m/s (Liver Stiffness 13-17 kPa): Rules in compensated advanced chronic liver disease. *Shear wave velocity greater than 2.4 m/s (Liver Stiffness over 17 kPa): Suggestive of clinically significant portal hypertension. QUALITY OF DATA SET: *IQR/Median value equal or less than 0.15 implies a quality data set. *IQR/Median value over 0.15 implies a poor quality data set. SIGNIFICANT CHANGE FROM PRIOR EXAM: Significant change if liver stiffness measurement is 10% or greater from prior exam. OTHER CONSIDERATIONS: The stage of liver fibrosis may be overestimated in the setting of acute hepatitis, liver inflammation, elevated liver function tests, hepatic vascular congestion, obstructive cholestasis, non-fasting state, and infiltrative diseases such as amyloidosis and lymphoma. In some patients with NAFLD, the liver stiffness thresholds for compensated advanced chronic liver disease may be lower. In causes other than viral hepatitis and NAFLD, liver stiffness thresholds are not well established. Electronically signed by: Ricardo Guerrero MD 12/25/2024 01:00 PM [facility]
== END 2024-12-25 08:25 | disposition home or self-care (01) ==
LOC: HO.US 08:24
PROVIDERS: PCP Internal Medicine; Visit Provider Physician Assistant Medical
DX: K76.0 Fatty (change of) liver, not elsewhere classified (principal); E11.65 Type 2 diabetes mellitus with hyperglycemia; Z79.4 Long term (current) use of insulin
CPT/HCPCS: 76705; 76981

== ENCOUNTER → 2024-12-25 08:26 | Outpatient (BNV) | payer OTHER, SELFPAY | PROVIDERS: PCP Internal Medicine; Visit Provider Radiology Diagnostic Radiology | DX: K76.0 Fatty (change of) liver, not elsewhere classified (principal); R16.0 Hepatomegaly, not elsewhere classified | CPT/HCPCS: 76705 ==

== ENCOUNTER 2025-03-19 13:02 | Outpatient (AMB) | payer OTHER, SELFPAY ==
--- NOTE | 2025-03-19 13:04 | MHC.OFFVIS ---
Vital Signs 03/19/25 13:07 Height 6 ft Weight 338 lb 13.608 oz BMI 46.0 BP 132/64 Blood Pressure Location Lt brachial Position Sitting Pulse 71 Pulse Source Pulse Oximeter Pulse Oximetry (%) 97 Oxygen Delivery Method Room Air Intake Visit Reasons: Type II diabetes Intake Note: Patient present today to follow up on Type 2 Diabetes Mellitus. 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 He is here with his , Hannah. Hemoglobin A1c 6.6% today down from 9.3%. Reviewed [employer] 3 download CGM active 85% Average glucose 127 G NM 6.3% Glucose variability 21.8% Very high 0% High 5% Target range 95% 0% hypoglycemia Patient has occasional hyperglycemia in the afternoon and evening but the majority of his glucose readings are within target range. Current regimen: He takes pioglitazone 45 mg once daily and Tresiba 32 units. Interval weight gain. Ozempic appeal denied. Other GLP ones are also too expensive. Past medications: Glipizide was stopped to start insulin. Lantus discontinued due to skin rash. He had diarrhea on Metformin. He was on Januvia, but he reports this also caused adverse side effects. Compliance issues: None. He does not exercise. He does want to work more on his diet, but he has cut down on sugary things and carbohydrates, and he also stopped drinking scotch except for when they go out socially. Hypoglycemia symptoms: None Hyperglycemia symptoms: Polyuria Eye exam: Up-to-date and no retinopathy per patient Microvascular complications: neuropathy, nephropathy (CKD stage IIIA and microalbuminuria) Macrovascular complications: None Hypertension: treated with chlorthalidone 25 mg and started losartan 25 mg daily. Hyperlipidemia: treated with Pravastatin, and his LDL cholesterol was 109. Increased pravastatin to 40 mg. Patient had a liver ultrasound which showed fatty liver and hepatomegaly. He was referred to Gastroenterology. He has an upcoming appointment. ROS: Constitutional: No unexplained weight loss, fevers, chills or fatigue. Eyes: No vision changes Respiratory: No shortness of breath Cardiovascular: No chest pain Gastrointestinal: No anorexia, nausea, vomiting or diarrhea. No abdominal pain Neurologic: +numbness, tingling and burning in his feet. Skin: No open wound. Physical exam: Constitutional: Alert, in no distress. Neck: Supple, Full range of motion. No lymphadenopathy. Respiratory: Clear to auscultation. Cardiovascular: S1 S2 regular. No murmurs. [facility] Medical History (Updated 03/19/25 @ 14:20 by KOMAL Allison) Obesity, Class III, BMI 40-49.9 (morbid obesity) Hepatic steatosis Hyperlipidemia Uncontrolled type 2 diabetes mellitus with hyperglycemia, with long-term current use of insulin Diabetic nephropathy Surgical History H/O discectomy Hx of appendectomy Family History Mother Diabetes Father Cardiovascular disease Social History Housing: House Patient Tobacco Use Status: Current everyday Tobacco user Tobacco use type: Cigar e-Cigarette/Vaping Use: Never Used Second Hand Smoke Exposure: No service: No Current occupational status: retired Current occupational exposures/hazards: No Cognitive needs: No Hearing needs: Yes Vision needs: Yes Physical Exam Vital Signs: Last Vital Signs Pulse 71 03/19/25 13:07 BP 132/64 03/19/25 13:07 Pulse Ox 97 03/19/25 13:07 Oxygen Delivery Method Room Air 03/19/25 13:07 BMI result Body Mass Index 46.0 Results AMB Hemoglobin A1c AMB Hemoglobin A1c 6.6 % Last Edit by LARRY Castelan on 03/19/25 13:28 Results Reviewed Results Reviewed: Laboratory Last Values Glucose (Clinic) 116 mg/dL (60-115) H 03/19/25 13:19 Laboratory Tests 04/28/24 11/19/24 10:57 10:35 Creatinine 1.22 Estimated GFR 59 AST 19 ALT 21 Triglycerides 55 Cholesterol 171 LDL Cholesterol, Calc 109 H HDL Cholesterol 51 Urine Creatinine 28.97 Urine Microalbumin 13.0 Microalb/Creat Ratio 44.8 H Assessment & Plan Assessment & Plan (1) Diabetic nephropathy: Code(s): E11.21 - Type 2 diabetes mellitus with diabetic nephropathy Category: Medical Qualifiers: Diabetes mellitus type: type 2 Qualified Code(s): E11.21 - Type 2 diabetes mellitus with diabetic nephropathy (2) Uncontrolled type 2 diabetes mellitus with hyperglycemia, with long-term current use of insulin: Code(s): E11.65 - Type 2 diabetes mellitus with hyperglycemia; Z79.4 - intermediate teacher (current) use of insulin Category: Medical (3) Hypertension: Code(s): I10 - Essential (primary) hypertension Category: Medical Qualifiers: Hypertension type: primary hypertension Qualified Code(s): I10 - Essential (primary) hypertension (4) Hyperlipidemia: Code(s): E78.5 - Hyperlipidemia, unspecified Category: Medical Qualifiers: Hyperlipidemia type: pure hypercholesterolemia Qualified Code(s): E78.00 - Pure hypercholesterolemia, unspecified (5) Obesity, Class III, BMI 40-49.9 (morbid obesity): Code(s): E66.813 - Obesity, class 3 Category: Medical Plan In summary this is a 69-year-old male with controlled type 2 diabetes with microvascular complications. Discussed pathophysiology of Type II Diabetes Mellitus with the patient in detail.? I explained the intermediate accountant risks and complications associated with uncontrolled diabetes including nephropathy, neuropathy, peripheral vascular disease, retinopathy, increased risk of heart disease and stroke.? Discussed lifestyle modification with the patient. Patient declined referral to dietitian and industrial chemistry teacher. Continue Tresiba 32 units at bedtime. Decrease Actos from 45 to 30 mg daily. Patient agrees to start walking 5 days per week to promote weight loss. Bring glucometer to all appointments. If you experience low blood sugar, treat this by eating a chewable fruit candy like skittles or jelly beans (about 8 pieces), 4 ounces (1/2 cup) of fruit juice (not diet), 1 tablespoon of honey or 4 glucose tablets. If your blood sugar is under 55, take double the amount of one of the above. Recheck your blood sugar in 15 minutes. He has glucose tablets at home. Continue pravastatin to 40 mg daily. check lipid profile prior to next appointment. Continue chlorthalidone for hypertension. Continue losartan for hypertension and renal protection. Follow up in 3 months for type 2 diabetes. Orders: Orders Lipid Panel 5 Weeks E78.5 - Hyperlipidemia, unspecified Microalbumin, Random (w Creat) 5 Weeks E11.9 - Type 2 diabetes mellitus without complications Aspartate Amino Transferase 5 Weeks K76.0 - Fatty (change of) liver, not elsewhere classified AMB Hemoglobin A1c Today E11.65 - Type 2 diabetes mellitus with hyperglycemia, Z79.4 - residential (current) use of insulin Creatinine 5 Weeks E11.9 - Type 2 diabetes mellitus without complications AMB Glucose Monitoring Today E11.9 - Type 2 diabetes mellitus without complications, K76.0 - Fatty (change of) liver, not elsewhere classified Alanine Aminotransferase 5 Weeks K76.0 - Fatty (change of) liver, not elsewhere classified, R79.89 - Other specified abnormal findings of blood chemistry Medications: New pioglitazone (Actos) 30 mg PO DAILY 90 tabs 0RF Refilled Tresiba FlexTouch U-100 (insulin degludec) 32 units (0.32 mL) subcut BEDTIME 15 mL 5RF NS Discontinued pioglitazone Discontinued Reason: Doctor's Order 45 mg PO DAILY 90 tabs 3RF Coding Level of Care Code Est Pt Level 4 (31361) Diagnoses Diabetic nephropathy associated with type 2 diabetes mellitus E11.21 Diabetes mellitus type: type 2 Uncontrolled type 2 diabetes mellitus with hyperglycemia, with long-term current use of insulin E11.65; Z79.4 Primary hypertension I10 Hypertension type: primary hypertension Pure hypercholesterolemia E78.00 Hyperlipidemia type: pure hypercholesterolemia Obesity, Class III, BMI 40-49.9 (morbid obesity) E66.813
[2025-03-19 13:07] VITALS: BP 132/64; PULSE 71; O2SAT 97; BMI 46.0
[2025-03-19 13:23] LABS: Glucose, Whole Blood 116 mg/dL (60-115)
== END 2025-03-19 13:49 | disposition home or self-care (01) ==
LOC: HO.ENCR 13:02
PROVIDERS: PCP Internal Medicine; Visit Provider Physician Assistant Medical
DX: E11.21 Type 2 diabetes mellitus with diabetic nephropathy (principal); E11.65 Type 2 diabetes mellitus with hyperglycemia; Z79.4 Long term (current) use of insulin; I10 Essential (primary) hypertension; E78.00 Pure hypercholesterolemia, unspecified; E66.813 Obesity, class 3

== ENCOUNTER → 2025-03-19 13:02 | Outpatient (BNVA) | payer OTHER, SELFPAY | PROVIDERS: PCP Internal Medicine; Visit Provider Physician Assistant Medical | DX: E11.65 Type 2 diabetes mellitus with hyperglycemia (principal); E11.21 Type 2 diabetes mellitus with diabetic nephropathy; I10 Essential (primary) hypertension; E78.00 Pure hypercholesterolemia, unspecified; E66.813 Obesity, class 3; Z68.42 Body mass index [BMI] 45.0-49.9, adult; Z79.4 Long term (current) use of insulin; Z79.84 Long term (current) use of oral hypoglycemic drugs | CPT/HCPCS: 82947; 83036 ==

== ENCOUNTER 2025-04-29 12:01 | Outpatient (REF) | payer OTHER, SELFPAY ==
[2025-04-29 16:23] LABS: Alanine Aminotransferase 23 U/L (0-40); Aspartate Amino Transferase 27 U/L (5-37); Cholesterol 137 mg/dL (<200); Estimated Glomerular Filt Rate > 60; HDL Cholesterol 47 mg/dL (>40); Triglycerides 81 mg/dL (<150)
[2025-04-29 16:53] LABS: Microalbum/Creatinine Ratio Ur 110.5 ug/mg cr (<30)
== END 2025-04-29 12:02 | disposition home or self-care (01) ==
LOC: HO.WFDLDS 12:01
PROVIDERS: Visit Provider Physician Assistant Medical
DX: E11.9 Type 2 diabetes mellitus without complications (principal); E78.5 Hyperlipidemia, unspecified; K76.0 Fatty (change of) liver, not elsewhere classified; R79.89 Other specified abnormal findings of blood chemistry
CPT/HCPCS: 36415; 80061; 82043; 82565; 82570; 84450; 84460

== ENCOUNTER 2025-04-30 13:33 | Outpatient (AMB) | payer OTHER, SELFPAY ==
--- NOTE | 2025-04-30 13:36 | A.OFFVIS_ITS ---
Vital Signs 04/30/25 13:39 Height 6 ft Weight 347 lb 10.703 oz BMI 47.1 BP 134/68 Blood Pressure Location Lt brachial Position Sitting Pulse 69 Pulse Source Pulse Oximeter Pulse Oximetry (%) 96 Oxygen Delivery Method Room Air Intake Visit Reasons: Type II diabetes Intake Note: Patient present today to follow up on Type 2 Diabetes Mellitus. Last Diabetic Eye exam: approx 11 months ago Last Podiatry Visit: Does not see a House Wirer Random Glucose: mg/dl HgA1C: 6.6% 03/19/2025 Halftone Operator Required: No Accompanied by: Spouse Allergies Penicillins (PENICILLINS) Allergy (Unknown, Verified 04/30/25 13:39) UNKNOWN insulin glargine (From Lantus U-100 Insulin) Allergy (Verified 04/30/25 13:39) Rash Medication List - Last Reconciled 04/30/25 by KOMAL Allison aspirin (Adult Low Dose Aspirin) 81 mg PO DAILY BD Kathy 2nd Gen Pen Needle (pen needle, diabetic) 1 ea miscellaneous .once daily NS blood-glucose sensor (FreeStyle Sonya 3 Sensor device) apply new sensor every 14 days blood-glucose,duplicating machine operator,cont (FreeStyle Sonya 3 [employer]) Use daily to monitor blood glucose levels continuously. chlorthalidone 25 mg PO DAILY clotrimazole-betamethasone 1-0.05 % 1 appl topical BID 4 weeks CPAP (CPAP Machine/Device) AIRFIT F20 head medium REF [id number] AIRFIT F20 [place]ushion REF [id number] CPAP SlimTube 6ft 15mm with 22mm cuffs REF [id number] CPAP Pollen Filters REF [id number] 2 felt pollen filter for ResMed Air 11 Continuous for sleep fluconazole 150 mg PO DAILY 10 days fluoxetine 40 mg PO DAILY fluoxetine 20 mg PO DAILY FreeStyle Lancets (lancets) three times perday for blood glucose monitoring NS FreeStyle Lite Meter (blood-glucose meter) As directed for blood glucose monitoring three times /day NS glucose (Dex4 Glucose) 16 grams (4 x 4 gram) PO Q15M PRN lancets check blood glucose 3 times daily losartan 25 mg PO DAILY omeprazole 20 mg PO BID pioglitazone (Actos) 15 mg PO DAILY pravastatin 40 mg PO BEDTIME Tresiba FlexTouch U-100 (insulin degludec) 22 units (0.22 mL) subcut BEDTIME 90 days NS HPI Comments Details: This is a 69-year-old male with a past medical history of obstructive sleep apnea on CPAP, uncontrolled type 2 diabetes, tinea cruris, hypertension and hyperlipidemia presenting for an initial consult for diabetic management. He is here with his , Hannah. Hemoglobin A1c 6.6% 03/09/25. Reviewed Sonya 3 CGM active 43% G GA 6% Glucose variability 21.9% Target range 96% 0% hypoglycemia High 4% He has very rare hyperglycemia in the afternoon and evening. His other readings are in target range throughout the day. Current regimen: He takes pioglitazone 30 mg once daily and Tresiba 32 units. Interval weight gain. This started after he began insulin. We reduced the dose of Actos, and he has still gained weight. Ozempic appeal denied. Other GLP ones are also too expensive. Past medications: Glipizide was stopped to start insulin. Lantus discontinued due to skin rash. He had diarrhea on Metformin. He believes it was the immediate release formula. He was on Januvia, but he reports this also caused adverse side effects. Compliance issues: None. He does not exercise, but he has drastically changed his diet. He is eating much healthier. It is a high-protein, low-carbohydrate diet. Hypoglycemia symptoms: None Hyperglycemia symptoms: None Eye exam: Up-to-date and no retinopathy per patient Microvascular complications: neuropathy, nephropathy (CKD stage IIIA and microalbuminuria) Macrovascular complications: None Hypertension: treated with chlorthalidone 25 mg and started losartan 25 mg daily. Hyperlipidemia: Treated with pravastatin 40 mg Patient had a liver ultrasound which showed fatty liver and hepatomegaly. He was referred to Gastroenterology. He has an upcoming appointment. ROS: Constitutional: No unexplained weight loss, fevers, chills or fatigue. Eyes: No vision changes Respiratory: No shortness of breath Cardiovascular: No chest pain Gastrointestinal: No anorexia, nausea, vomiting or diarrhea. No abdominal pain Neurologic: +numbness, tingling and burning in his feet. Skin: No open wound. Physical exam: Constitutional: Alert, in no distress. Neck: Supple, Full range of motion. No lymphadenopathy. Respiratory: Clear to auscultation. Cardiovascular: S1 S2 regular. No murmurs. [facility] Medical History (Updated 04/30/25 @ 14:09 by KOMAL Allison) Lower extremity edema Obesity, Class III, BMI 40-49.9 (morbid obesity) Hepatic steatosis Hyperlipidemia Uncontrolled type 2 diabetes mellitus with hyperglycemia, with long-term current use of insulin Diabetic nephropathy Surgical History H/O discectomy Hx of appendectomy Family History Mother Diabetes Father Cardiovascular disease Social History Housing: House Patient Tobacco Use Status: Current everyday Tobacco user Tobacco use type: Cigar e-Cigarette/Vaping Use: Never Used Second Hand Smoke Exposure: No service: No Current occupational status: retired Current occupational exposures/hazards: No Cognitive needs: No Hearing needs: Yes Vision needs: Yes Physical Exam Vital Signs: BMI result Body Mass Index 47.1 Office Procedures Glucose Monitoring Details Details: see HPI [id number] - Glucose monitoring, continuous-physician I&R Procedure code (CPT) selection complete Results Reviewed Results Reviewed: Laboratory Tests 04/28/24 11/19/24 10:57 10:35 Creatinine 1.22 Estimated GFR 59 AST 19 ALT 21 Triglycerides 55 Cholesterol 171 LDL Cholesterol, Calc 109 H HDL Cholesterol 51 Urine Creatinine 28.97 Urine Microalbumin 13.0 Microalb/Creat Ratio 44.8 H Assessment & Plan Assessment & Plan (1) Diabetic nephropathy: Code(s): E11.21 - Type 2 diabetes mellitus with diabetic nephropathy Category: Medical Qualifiers: Diabetes mellitus type: type 2 Qualified Code(s): E11.21 - Type 2 diabetes mellitus with diabetic nephropathy (2) Uncontrolled type 2 diabetes mellitus with hyperglycemia, with long-term current use of insulin: Code(s): E11.65 - Type 2 diabetes mellitus with hyperglycemia; Z79.4 - [facility] (current) use of insulin Category: Medical (3) Hypertension: Code(s): I10 - Essential (primary) hypertension Category: Medical Qualifiers: Hypertension type: primary hypertension Qualified Code(s): I10 - Essential (primary) hypertension (4) Hyperlipidemia: Code(s): E78.5 - Hyperlipidemia, unspecified Category: Medical Qualifiers: Hyperlipidemia type: pure hypercholesterolemia Qualified Code(s): E78.00 - Pure hypercholesterolemia, unspecified (5) Obesity, Class III, BMI 40-49.9 (morbid obesity): Code(s): E66.813 - Obesity, class 3 Category: Medical Plan In summary this is a 69-year-old male with controlled type 2 diabetes with microvascular complications. Discussed pathophysiology of Type II Diabetes Mellitus with the patient in detail.? I explained the shelter risks and complications associated with uncontrolled diabetes including nephropathy, neuropathy, peripheral vascular disease, retinopathy, increased risk of heart disease and stroke.? Discussed lifestyle modification with the patient. Patient declined referral to dietitian and family educator. Understandably he is distraught over the weight gain since starting insulin, but he has limited options for other medications given passed responses and GLP 1 is too expensive. He wants to stop all of his medications completely today, but he agreed not to do this. He has drastically changed his diet, and he is thinking about starting to walk on the treadmill for exercise. He will decrease Actos to 15 mg daily. He will decrease Tresiba to 22 units at bedtime. We discussed it if blood sugars increase we can consider a trial of extended-release metformin at a very low dose or addition of glimepiride. Bring glucometer to all appointments. If you experience low blood sugar, treat this by eating a chewable fruit candy like skittles or jelly beans (about 8 pieces), 4 ounces (1/2 cup) of fruit juice (not diet), 1 tablespoon of honey or 4 glucose tablets. If your blood sugar is under 55, take double the amount of one of the above. Recheck your blood sugar in 15 minutes. He has glucose tablets at home. Continue pravastatin to 40 mg daily. Continue chlorthalidone for hypertension. Continue losartan for hypertension and renal protection. Follow up in 3 months for type 2 diabetes. He will send me an updated weight and a screen shot from his CGM to show target ranges on the portal in 2 weeks. Orders: Orders AMB Glucose Monitoring Today E11.9 - Type 2 diabetes mellitus without complications CA echo transthoracic complete Today I10 - Essential (primary) hypertension, R60.0 - Localized edema Medications: New pioglitazone (Actos) 15 mg PO DAILY 30 tabs 0RF Changed From Tresiba FlexTouch U-100 (insulin degludec) 32 units (0.32 mL) subcut BEDTIME 15 mL 5RF NS To Tresiba FlexTouch U-100 (insulin degludec) 22 units (0.22 mL) subcut BEDTIME 20 mL 5RF 90 days NS Discontinued pioglitazone (Actos) Discontinued Reason: Doctor's Order 30 mg PO DAILY 90 tabs 0RF Patient Instructions: Decrease Actos to 15 mg daily. Reduce Tresiba to 22 units daily. Send me weight and target range on sensor in 2 weeks via the portal. Coding Level of Care Code Est Pt Level 4 (91814) Diagnoses Diabetic nephropathy associated with type 2 diabetes mellitus E11.21 Diabetes mellitus type: type 2 Uncontrolled type 2 diabetes mellitus with hyperglycemia, with long-term current use of insulin E11.65; Z79.4 Primary hypertension I10 Hypertension type: primary hypertension Pure hypercholesterolemia E78.00 Hyperlipidemia type: pure hypercholesterolemia Obesity, Class III, BMI 40-49.9 (morbid obesity) E66.813 CPT Codes Details - CPT: 02672 - Glucose monitoring, continuous-physician I&R ([id number])
[2025-04-30 13:39] VITALS: BP 134/68; PULSE 69; O2SAT 96; BMI 47.1
[2025-04-30 13:49] LABS: Glucose, Whole Blood 116 mg/dL (60-115)
== END 2025-04-30 14:15 | disposition home or self-care (01) ==
LOC: HO.ENCR 13:34
PROVIDERS: PCP Internal Medicine; Visit Provider Physician Assistant Medical
DX: E11.21 Type 2 diabetes mellitus with diabetic nephropathy (principal); E11.65 Type 2 diabetes mellitus with hyperglycemia; Z79.4 Long term (current) use of insulin; I10 Essential (primary) hypertension; E78.00 Pure hypercholesterolemia, unspecified; E66.813 Obesity, class 3

== ENCOUNTER → 2025-04-30 13:33 | Outpatient (BNVA) | payer OTHER, SELFPAY | PROVIDERS: PCP Internal Medicine; Visit Provider Physician Assistant Medical | DX: E11.21 Type 2 diabetes mellitus with diabetic nephropathy (principal) | CPT/HCPCS: 82947 ==

== ENCOUNTER 2025-05-17 10:03 | Outpatient (AMB) | payer OTHER, SELFPAY ==
--- NOTE | 2025-05-17 10:09 | MHC.OFFVIS ---
Vital Signs 05/17/25 10:16 Height 6 ft Weight 337 lb 4.916 oz BMI 45.7 BP 128/63 Blood Pressure Location Lt brachial Position Sitting Pulse 75 Intake Visit Reasons: Fatty Liver Intake Note: Moses presents in the office as a new patient for fatty liver. CC: HE states he is not having any concerns and everything is working accordingly. Tower Helper Required: No Allergies Penicillins (PENICILLINS) Allergy (Unknown, Verified 05/17/25 10:19) UNKNOWN insulin glargine (From Lantus U-100 Insulin) Allergy (Verified 05/17/25 10:19) Rash HPI Comments Details: 69 y.o M with PMH of DM, obesity, HTN, NICO on CPAP referred to our office for hepatic steatosis. Pt himself is asymptomatic. No abd pain, N,V. Labs from earlier this month with normal transaminases. Elastography with low stiffness BUT poor quality data so unreliable. 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 Smokes 2 cigars per day. Also has equivalent of 2 drinks of scotch per day. Was drinking almost 4 drinks per day almost 2 years. Older brother with cirrhosis likely from etOH. No fam hx of CRC. Last colo 2022 - [facility]. 1 T.A in descending and 3 hyperplastic sigmoid polyps. . [facility] Medical History (Updated 05/17/25 @ 14:45 by Loan Guo MD) Lower extremity edema Obesity, Class III, BMI 40-49.9 (morbid obesity) Hepatic steatosis Hyperlipidemia Uncontrolled type 2 diabetes mellitus with hyperglycemia, with long-term current use of insulin Diabetic nephropathy Surgical History (Updated 05/17/25 @ 10:18 by LARRY Gates) Hx of colonoscopy History of esophagogastroduodenoscopy (EGD) H/O discectomy Hx of appendectomy Family History Mother Diabetes Father Cardiovascular disease Social History Housing: House Patient Tobacco Use Status: Current everyday Tobacco user Tobacco use type: Cigar e-Cigarette/Vaping Use: Never Used Second Hand Smoke Exposure: No service: No Current occupational status: retired Current occupational exposures/hazards: No Cognitive needs: No Hearing needs: Yes Vision needs: Yes Review of Systems Const All systems reviewed & are unremarkable except as noted in HPI and below Physical Exam Exam Exam: No apparent distress Nonicteric Abdomen soft, nondistended Alert and oriented x3, normal gait Vital Signs: Last Vital Signs Pulse 75 05/17/25 10:16 BP 128/63 05/17/25 10:16 BMI result Body Mass Index 45.7 Results Reviewed Results Reviewed: Liver elastography Hepatomegaly and hepatic steatosis. The median shear wave velocity in the liver is 1.35 m/s, corresponding to a median liver stiffness of 5.52 kPa. The IQR/median value is 0.20. This is indicative of a poor quality data set, and the estimated liver stiffness may be unreliable. Assessment & Plan Assessment & Plan (1) MetALD: Code(s): K76.0 - Fatty (change of) liver, not elsewhere classified; F10.90 - Alcohol use, unspecified, uncomplicated Category: Medical Plan Hepatic steatosis likely 2/2 metALD. No evidence of ongoing steatohepatitis. Normal transaminases. Fib 4 2.27 i.e advanced fibrosis not ruled out. Elasto with poor data set. Plan: - Labs to r/o other etiologies of chronic liver disease - Recheck CBC and LFTs - if Fib 4 remains in ng zone, can get another elasto in 6 months from before - i.e Jun 2025. Follow up contingent on above Orders: Orders Comprehensive Met. Panel Today K76.0 - Fatty (change of) liver, not elsewhere classified Ceruloplasmin Today K76.0 - Fatty (change of) liver, not elsewhere classified Hepatitis A IgG Today K76.0 - Fatty (change of) liver, not elsewhere classified Hepatitis B Surface Antibody Today K76.0 - Fatty (change of) liver, not elsewhere classified Mitochondrial Antibody Today K76.0 - Fatty (change of) liver, not elsewhere classified Transglutaminase IgA Today K76.0 - Fatty (change of) liver, not elsewhere classified TSH reflex Free T4 Today K76.0 - Fatty (change of) liver, not elsewhere classified Complete Blood Count no Diff Today K76.0 - Fatty (change of) liver, not elsewhere classified IRON PROFILE Today K76.0 - Fatty (change of) liver, not elsewhere classified Immunoglobulin G Today K76.0 - Fatty (change of) liver, not elsewhere classified Immunoglobulin A Today K76.0 - Fatty (change of) liver, not elsewhere classified Ferritin Today K76.0 - Fatty (change of) liver, not elsewhere classified Alpha 1 Anti-trypsin Today K76.0 - Fatty (change of) liver, not elsewhere classified Hepatitis B Core Antibody Today K76.0 - Fatty (change of) liver, not elsewhere classified Hepatitis B Surface Antigen Today K76.0 - Fatty (change of) liver, not elsewhere classified Hepatitis C Antibody Today K76.0 - Fatty (change of) liver, not elsewhere classified Liver Kidney Microsomal Ab Today K76.0 - Fatty (change of) liver, not elsewhere classified Prothrombin Time INR Today K76.0 - Fatty (change of) liver, not elsewhere classified Smooth Muscle Antibody Today K76.0 - Fatty (change of) liver, not elsewhere classified Coding Level of Care Code New Pt Level 4 (04032) Diagnoses MetALD K76.0; F10.90
[2025-05-17 10:16] VITALS: BP 128/63; PULSE 75; BMI 45.7
--- OUTSIDE RECORDS SUMMARY | 2025-05-17 11:05 | XMS_ITS | Clinical Summary ---
Author Organization [facility] Address [address] [address] Phone Care Team Providers Care Recovery Coach Name Role Phone Lizette Anderson MD Primary Care Provider Allergies Active Allergy Reactions Criticality Noted Date Comments Penicillins Rash Low 07/04/2024 Medications LANTUS SOLOSTAR U-100 INSULIN 100 unit/mL (3 mL) InPn injection pen INJECT 46 UNITS SUBCUTANEOUSLY EVERY MORNING 4 Active FLUoxetine (PROZAC) 40 MG capsule TAKE 1 CAPSULE EVERY DAY -ALONG WITH 20MG CAP FOR TOTAL OF 60MG DAILY 4 Active FLUoxetine (PROZAC) 20 MG capsule Take 1 capsule by mouth every morning. 4 Active indomethacin (INDOCIN) 25 MG capsule PRN 2 Active omeprazole (PRILOSEC) 20 MG capsule Take 20 mg by mouth 2 (two) times a day. 4 Active chlorthalidone (HYGROTON) 25 MG tablet Take 1 tablet by mouth every morning. 4 Active pravastatin (PRAVACHOL) 20 MG tablet Take 1 tablet by mouth every morning. 4 Active Medication-Darvin e Text CPAP Active Medication-Darvin e Text Baby aspiring Active nystatin (NYSTOP) powder Apply topically 4 (four) times a day. 15 g 4 Active clotrimazole-b etamethasone (LOTRISONE) cream apply to affected area twice a day 45 g 4 Active Social History Tobacco Use Types Packs/Day Years Used Date Smoking Tobacco: Never Assessed Education Answer Date Recorded Are you interested in more education? Not on ursula e 07/04/2024 Are you concerned about learning? Not on file 07/04/2024 No 07/04/2024 No 07/04/2024 Digital Access Answer Date Recorded No 07/04/2024 No 07/04/2024 Reliable internet access at home? Not on file 07/04/2024 Device with a working camera? Not on file Sex and Gender Information Value Date Recorded Sex Assigned at Not on file Legal Sex Male 6:33 PM EST Gender Identity Not on file Sexual Orientation Not on file Last Filed Vital Signs Vital Sign Reading Time Taken Comments Blood Pressure 149/85 07/04/2024 12:03 PM EDT Pulse 76 07/04/2024 12:03 PM EDT Temperature 36.4 C (97.6 F) 07/04/2024 12:03 PM EDT Respiratory Rate 20 07/04/2024 12:03 PM EDT Oxygen Saturation 97% 07/04/2024 12:03 PM EDT Inhaled Oxygen Concentration - - Weight 149.7 kg (330 lb) 07/04/2024 12:03 PM EDT Height 182.9 cm (6') 07/04/2024 12:03 PM EDT Body Mass Index 44.76 07/04/2024 12:03 PM EDT Plan of Treatment Health Maintenance Due Date Last Done Comments LIPID PANEL 1956 POTASSIUM LEVEL 1956 DEPRESSION SCREENING 1968 SMOKING Hx and SMOKELESS TOBACCO SCREENING 1969 HEPATITIS C SCREENING 1974 SCREENING FOR DIABETES 1991 COLOGUARD 2001 COLONOSCOPY 2001 COLORECTAL CANCER SCREENING 2001 FIT TEST 2001 FOBT 2001 SIGMOIDOSCOPY 2001 VIRTUAL COLONOSCOPY 2001 ZOSTER VACCINES (1 of 2) 2006 RSV VACCINE (1 - Risk 60-74 years 1-dose series) 2016 Adult Td,Tdap Booster 01/15/2023 01/15/2013 COVID-19 VACCINE ( season) 2024 07/23/2023, 07/19/2022, 08/29/2021, Additional history exists PNEUMOCOCCAL VACCINES (50+ years) Completed 10/31/2022, 10/13/2014 HEPATITIS A VACCINES Aged Out No long er eligible based on patient's age to complete this topic HIB VACCINES Aged Out No longer eligi ble based on patient's age to complete this topic MENINGOCOCCAL VACCINES (ACWY) Aged Out No longer eligible based on patient's age to complete this topic MENINGOCOCCAL VACCINES (B) Aged Out N o longer eligible based on patient's age to complete this topic Medical Devices Not on file Insurance [employer] O MEDICARE REPLACEMENT MEDICARE PART A & B [employer] PPO MEDICARE REPLACEMENT MEDICARE PART A & B [employer] PPO MEDICARE REPLACEMENT MEDICARE PART A & B [employer] PPO MEDICARE REPLACEMENT MEDICARE PART A & B [employer] PPO MEDICARE REPLACEMENT MEDICARE PART A & B [employer] PPO MEDICARE REPLACEMENT MEDICARE PART A & B Care Teams Recovery Coach Relationship Specialty Start Date End Date Lizette Anderson MD PCP - General 08/05/17 Additional Source Comments The information contained in this document represents components of the legal health record. It is not the complete legal health record.[facility]
== END 2025-05-17 10:52 | disposition home or self-care (01) ==
LOC: HO.HGI 10:04
PROVIDERS: PCP Internal Medicine; Visit Provider Internal Medicine
DX: K76.0 Fatty (change of) liver, not elsewhere classified (principal); F10.90 Alcohol use, unspecified, uncomplicated
CPT/HCPCS: 99204

== ENCOUNTER 2025-06-04 14:00 | Outpatient (AMB) | payer OTHER, SELFPAY ==
--- OUTSIDE RECORDS SUMMARY | 2025-06-04 14:04 | XMS_ITS | Clinical Summary ---
Author Organization [facility] Address [address] [address] Phone Care Team Providers Care Hander In Name Role Phone Lizette Anderson MD Primary [...] MEDICARE PART A & B Care Teams Hander In Relationship Specialty Start Date End Date Lizette Anderson MD PCP - General 08/05/17 Additional Source Comments The information contained in this document represents components of the legal health record. It is not the complete legal health record.[facility]
[2025-06-04 14:08] VITALS: BP 130/74; PULSE 73; O2SAT 98; BMI 47.0
--- NOTE | 2025-06-04 14:08 | A.OFFVIS_ITS ---
Vital Signs 06/04/25 14:08 Height 6 ft Weight 346 lb 9.067 oz BMI 47.0 BP 130/74 Blood Pressure Location Lt brachial Position Sitting Pulse 73 Pulse Source Pulse Oximeter Pulse Oximetry (%) 98 Oxygen Delivery Method Room Air Intake Visit Reasons: Type II diabetes Intake Note: Patient present today to follow up on Type 2 Diabetes Mellitus. Last Diabetic Eye exam: 2023 but will be scheduling an appt Last Podiatry Visit: Does not see a Cigar Tobacco Processing Supervisor Random Glucose: 153 mg/dl HgA1C: 6.6% 03/19/2025 Big Data Admin Required: No Accompanied by: Spouse Allergies Penicillins (PENICILLINS) Allergy (Unknown, Verified 06/04/25 14:13) UNKNOWN insulin glargine (From Lantus U-100 Insulin) Allergy (Verified 06/04/25 14:13) Rash Medication List - Last Reconciled 06/04/25 by KOMAL Allison aspirin (Adult Low Dose Aspirin) 81 mg PO DAILY BD Kathy 2nd Gen Pen Needle (pen needle, diabetic) 1 ea miscellaneous .once daily NS blood-glucose sensor (FreeStyle Sonya 3 Sensor device) apply new sensor every 14 days blood-glucose,carbonating stone cleaner,cont (FreeStyle Sonya 3 [place]) Use daily to monitor blood glucose levels continuously. chlorthalidone 25 mg PO DAILY clotrimazole-betamethasone 1-0.05 % 1 appl topical BID 4 weeks CPAP (CPAP Machine/Device) AIRFIT F20 head medium REF [id number] AIRFIT F20 [place] REF [id number] CPAP SlimTube 6ft 15mm with 22mm cuffs REF [id number] CPAP Pollen Filters REF [id number] 2 felt pollen filter for ResMed Air 11 Continuous for sleep fluconazole 150 mg PO DAILY 10 days fluoxetine 40 mg PO DAILY fluoxetine 20 mg PO DAILY FreeStyle Lancets (lancets) three times perday for blood glucose monitoring NS FreeStyle Lite Meter (blood-glucose meter) As directed for blood glucose monitoring three times /day NS glucose (Dex4 Glucose) 16 grams (4 x 4 gram) PO Q15M PRN insulin degludec (Tresiba FlexTouch U-100 insulin) 10 units subcut BEDTIME lancets check blood glucose 3 times daily losartan 25 mg PO DAILY metformin ER 500 mg PO DAILY omeprazole 20 mg PO BID pravastatin 40 mg PO BEDTIME HPI Comments Details: This is a 69-year-old male with a past medical history of obstructive sleep apnea on CPAP, uncontrolled type 2 diabetes, tinea cruris, hypertension and hyperlipidemia presenting for an initial consult for diabetic management. He is here with his , Hannah. Hemoglobin A1c 6.6% 03/09/25. Reviewed CGM data for the past 14 days GMI 6.6% Target range 98% High 2% He has excellent glycemic control over 24 hours. Current regimen: He takes pioglitazone 15 mg once daily and Tresiba 10 units. Interval weight gain. This started after he began insulin. We reduced the dose of Actos from 30-15 mg and Tresiba insulin from 32-10 units, and he initially lost 10-15 lb, but he gained it back. Ozempic appeal denied. Other GLP ones are also too expensive. Past medications: Glipizide was stopped to start insulin. Lantus discontinued due to skin rash. He had diarrhea on Metformin. He believes it was the immediate release formula, but he was unsure. He was on Januvia, but he reports this also caused adverse side effects. Compliance issues: None. He does not exercise, but he has drastically changed his diet. He is eating much healthier. It is a high-protein, low-carbohydrate diet. Decreased alcohol consumption. Hypoglycemia symptoms: None Hyperglycemia symptoms: None Eye exam: Up-to-date and no retinopathy per patient Microvascular complications: neuropathy, nephropathy (CKD stage IIIA and microalbuminuria) Macrovascular complications: None Hypertension: treated with chlorthalidone 25 mg and started losartan 25 mg daily. Hyperlipidemia: Treated with pravastatin 40 mg Patient had a liver ultrasound which showed fatty liver and hepatomegaly. He was referred to Gastroenterology. He has an upcoming appointment. ROS: Constitutional: No unexplained weight loss, fevers, chills or fatigue. Eyes: No vision changes Respiratory: No shortness of breath Cardiovascular: No chest pain Gastrointestinal: No anorexia, nausea, vomiting or diarrhea. No abdominal pain Neurologic: +numbness, tingling and burning in his feet. Skin: No open wound. Physical exam: Constitutional: Alert, in no distress. Neck: Supple, Full range of motion. No lymphadenopathy. No palpable thyroid masses or enlargement. Respiratory: Clear to auscultation. Cardiovascular: S1 S2 regular. No murmurs. Extremities: Warm and well perfused, 1+ lower extremity edema bilaterally. [facility] Medical History (Updated 05/17/25 @ 14:45 by Loan Guo MD) Lower extremity edema Obesity, Class III, BMI 40-49.9 (morbid obesity) Hepatic steatosis Hyperlipidemia Uncontrolled type 2 diabetes mellitus with hyperglycemia, with long-term current use of insulin Diabetic nephropathy Surgical History (Updated 05/17/25 @ 10:18 by LARRY Gates) Hx of colonoscopy History of esophagogastroduodenoscopy (EGD) H/O discectomy Hx of appendectomy Family History Mother Diabetes Father Cardiovascular disease Social History Housing: House Patient Tobacco Use Status: Current everyday Tobacco user Tobacco use type: Cigar e-Cigarette/Vaping Use: Never Used Second Hand Smoke Exposure: No service: No Current occupational status: retired Current occupational exposures/hazards: No Cognitive needs: No Hearing needs: Yes Vision needs: Yes Physical Exam Vital Signs: Last Vital Signs Pulse 73 06/04/25 14:08 BP 130/74 06/04/25 14:08 Pulse Ox 98 06/04/25 14:08 Oxygen Delivery Method Room Air 06/04/25 14:08 BMI result Body Mass Index 47.0 Office Procedures Glucose Monitoring Details Details: See [facility] [id number] - Glucose monitoring, continuous-physician I&R Procedure code (CPT) selection complete Results Reviewed Results Reviewed: Laboratory Tests 04/28/24 11/19/24 10:57 10:35 Creatinine 1.22 Estimated GFR 59 AST 19 ALT 21 Triglycerides 55 Cholesterol 171 LDL Cholesterol, Calc 109 H HDL Cholesterol 51 Urine Creatinine 28.97 Urine Microalbumin 13.0 Microalb/Creat Ratio 44.8 H Assessment & Plan Assessment & Plan (1) Diabetic nephropathy: Code(s): E11.21 - Type 2 diabetes mellitus with diabetic nephropathy Category: Medical Qualifiers: Diabetes mellitus type: type 2 Qualified Code(s): E11.21 - Type 2 diabetes mellitus with diabetic nephropathy (2) Uncontrolled type 2 diabetes mellitus with hyperglycemia, with long-term current use of insulin: Code(s): E11.65 - Type 2 diabetes mellitus with hyperglycemia; Z79.4 - shelter (current) use of insulin Category: Medical (3) Hypertension: Code(s): I10 - Essential (primary) hypertension Category: Medical Qualifiers: Hypertension type: primary hypertension Qualified Code(s): I10 - Essential (primary) hypertension (4) Hyperlipidemia: Code(s): E78.5 - Hyperlipidemia, unspecified Category: Medical Qualifiers: Hyperlipidemia type: pure hypercholesterolemia Qualified Code(s): E78.00 - Pure hypercholesterolemia, unspecified (5) Obesity, Class III, BMI 40-49.9 (morbid obesity): Code(s): E66.813 - Obesity, class 3 Category: Medical Plan In summary this is a 69-year-old male with controlled type 2 diabetes with microvascular complications. Discussed pathophysiology of Type II Diabetes Mellitus with the patient in detail.? I explained the terminal operations supervisor risks and complications associated with un controlled diabetes including nephropathy, neuropathy, peripheral vascular disease, retinopathy, increased risk of heart disease and stroke.? Discussed lifestyle modification with the patient. Patient declined referral to dietitian and certified adapted physical educator. Understandably he is distraught over the weight gain. GLP 1 too expensive despite insurance. Stop Actos. Continue Tresiba 10 units daily for now. Agreeable to retrying metformin, but we will prescribe extended release formula. He will start 500 mg once daily. If he has recurrent GI side effects he will stop taking it. He will take it with food. Check TSH. Bring glucometer to all appointments. Continue pravastatin to 40 mg daily. Continue chlorthalidone for hypertension. Continue losartan for hypertension and renal protection. I ordered an echocardiogram due to weight fluctuation, lower extremity edema and history of hypertension. Follow up in 4 weeks. Orders: Orders CA echo transthoracic complete Today I10 - Essential (primary) hypertension, R60.0 - Localized edema TSH reflex Free T4 Today E11.65 - Type 2 diabetes mellitus with hyperglycemia, Z79.4 - shelter (current) use of insulin Hemoglobin A1c Today R73.9 - Hyperglycemia, unspecified AMB Glucose Monitoring Today E11.9 - Type 2 diabetes mellitus without complications Medications: New 2 metformin ER 500 mg PO DAILY 90 tabs 0RF Changed From Tresiba FlexTouch U-100 (insulin degludec) 22 units (0.22 mL) subcut BEDTIME 90 days 20 mL 5RF NS To insulin degludec (Tresiba FlexTouch U-100 insulin) 10 units subcut BEDTIME Discontinued pioglitazone Discontinued Reason: Doctor's Order 15 mg PO DAILY 90 tabs 1RF Coding Level of Care Code Est Pt Level 4 (22186) Diagnoses Diabetic nephropathy associated with type 2 diabetes mellitus E11.21 Diabetes mellitus type: type 2 Uncontrolled type 2 diabetes mellitus with hyperglycemia, with long-term current use of insulin E11.65; Z79.4 Primary hypertension I10 Hypertension type: primary hypertension Pure hypercholesterolemia E78.00 Hyperlipidemia type: pure hypercholesterolemia Obesity, Class III, BMI 40-49.9 (morbid obesity) E66.813 CPT Codes Details - CPT: 15355 - Glucose monitoring, continuous-physician I&R ([id number])
[2025-06-04 14:20] LABS: Glucose, Whole Blood 153 mg/dL (60-115)
== END 2025-06-04 14:36 | disposition home or self-care (01) ==
LOC: HO.ENCR 14:01
PROVIDERS: PCP Internal Medicine; Visit Provider Physician Assistant Medical
DX: E11.21 Type 2 diabetes mellitus with diabetic nephropathy (principal); E11.65 Type 2 diabetes mellitus with hyperglycemia; Z79.4 Long term (current) use of insulin; I10 Essential (primary) hypertension; E78.00 Pure hypercholesterolemia, unspecified; E66.813 Obesity, class 3

== ENCOUNTER → 2025-06-04 14:00 | Outpatient (BNVA) | payer OTHER, SELFPAY | PROVIDERS: PCP Internal Medicine; Visit Provider Physician Assistant Medical | DX: E11.21 Type 2 diabetes mellitus with diabetic nephropathy (principal) | CPT/HCPCS: 82947 ==

== ENCOUNTER 2025-06-10 09:20 | Outpatient (REF) | payer OTHER, SELFPAY ==
--- OUTSIDE RECORDS SUMMARY | 2025-06-10 10:26 | XMS_ITS | Clinical Summary ---
Author Organization [facility] Address [address] [address] Phone Care Team Providers Care Humanities Coordinator Name Role Phone Lizette Anderson MD Primary [...] MEDICARE PART A & B Care Teams Humanities Coordinator Relationship Specialty Start Date End Date Lizette Anderson MD PCP - General 08/05/17 Additional Source Comments The information contained in this document represents components of the legal health record. It is not the complete legal health record.[facility]
[2025-06-10 11:40] LABS: INTERNATIONAL NORM RATIO 1.0 (0.9-1.1); Prothrombin Time 11.1 SEC (10.9-12.4)
[2025-06-10 11:41] LABS: Hematocrit 42.4 % (42.0-52.0); Hemoglobin 14.4 g/dl (14.0-18.0); Mean Corpuscular HGB Conc 34.0 g/dl (31.0-36.0); Mean Corpuscular Hemoglobin 29.7 pg (27.0-33.0); Mean Corpuscular Volume 87.4 fL (80.0-98.0); NRBC Abs Auto 0.000 X10*3/uL (0.0-0.012); NRBC Pct Auto 0.0 /100WBC (0.0-0.2); Platelet Count 159 X10*3/uL (160-400); Red Blood Count 4.85 X10*6/uL (4.60-5.80); White Blood Count 7.1 X10*3/uL (4.8-10.8)
[2025-06-10 11:50] LABS: Hemoglobin A1C 188.4254 umol/L; Total Hemoglobin (HGBA1C) 3708.9984 umol/L
[2025-06-10 12:10] LABS: Alanine Aminotransferase 25 U/L (0-40); Albumin Level 4.4 g/dL (3.5-5.0); Alkaline Phosphatase 49 U/L (39-117); Anion Gap 11 (12-20); Aspartate Amino Transferase 21 U/L (5-37); Blood Urea Nitrogen 24 mg/dL (9-16); Calcium 9.2 mg/dL (8.4-10.2); Carbon Dioxide 28 mmol/L (22-29); Chloride 103 mmol/L (96-108); Estimated Glomerular Filt Rate > 60; Ferritin 459 ng/mL (20-250); Iron 107 mcg/dL (45-160); Percent Iron Saturation 36 % (15-50); Potassium 4.3 mmol/L (3.3-5.1); Sodium 138 mmol/L (135-145); Total Iron Binding Capacity 300 mcg/dL (228-428); Total Protein 6.9 g/dL (6.5-8.0); Unsaturated Iron Binding 193 ug/dL
[2025-06-10 13:39] LABS: HBS Num1 0.00 mIU/mL (0-7.99); HBc Num1 0.14 S/CO (0.00-0.79); HBsAGNum1 0.48 S/CO (0.00-0.99); Hepatitis B Surface Antigen Negative (Negative); ~HepC Num1 0.11 S/CO (0.00-0.79); ~Hepatitis B Surface Antibody NONREACTIVE (Nonreactive); ~Hepatitis C Antibody Nonreactive (Nonreactive)
[2025-06-11 07:50] LABS: ~Hepatitis A Antibody IgG 0.37 S/CO (0.00-0.99)
[2025-06-11 10:43] LABS: Immunoglobulin A 154 mg/dL (70-320); Immunoglobulin G 738 mg/dL (600-1540)
[2025-06-18 01:19] LABS: Liver Kidney Microsomal Ab <=20.0 U (<=20.0)
== END 2025-06-10 09:21 | disposition home or self-care (01) ==
LOC: HO.WFDLDS 09:20
PROVIDERS: Referring Provider Internal Medicine; Visit Provider Physician Assistant Medical
DX: E11.65 Type 2 diabetes mellitus with hyperglycemia (principal); K76.0 Fatty (change of) liver, not elsewhere classified; Z79.4 Long term (current) use of insulin
CPT/HCPCS: 36415; 80053; 82103; 82390; 82728; 82784; 83036; 83540; 84443; 85027; 85610; 86015; 86364; 86376; 86381; 86704; 86706; 86708; 86803; 87340

== ENCOUNTER 2025-06-16 13:50 | Outpatient (AMB) | payer OTHER, SELFPAY ==
--- NOTE | 2025-06-16 13:53 | MHC.PC.OV ---
Vital Signs 06/16/25 14:00 Height 6 ft Weight 341 lb 4 oz BMI 46.3 BP 136/72 Blood Pressure Location Lt brachial Position Sitting Respiration 13 Pulse 72 Pulse Source Pulse Oximeter Temp 97.2 F Temp Source Oral Pulse Oximetry (%) 98 Oxygen Delivery Method Room Air Intake Visit Reasons: bit tongue, is puffy Intake Note: Patient c/o bit his tongue while using the cpap and left side of the neck px radiating to the left ear px x1 week Telephonic Case Manager Required: No Allergies Penicillins (PENICILLINS) Allergy (Unknown, Verified 06/16/25 14:11) UNKNOWN insulin glargine (From Lantus U-100 Insulin) Allergy (Verified 06/16/25 14:11) Rash Medication List - Last Reconciled 06/16/25 by MACY Gomez-STEPH aspirin (Adult Low Dose Aspirin) 81 mg PO DAILY BD Kathy 2nd Gen Pen Needle (pen needle, diabetic) 1 ea miscellaneous .once daily NS blood-glucose sensor (FreeStyle Sonya 3 Sensor device) apply new sensor every 14 days 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 chlorthalidone 25 mg PO DAILY clotrimazole-betamethasone 1-0.05 % 1 appl topical BID 4 weeks CPAP (CPAP Machine/Device) AIRFIT F20 head medium REF [id number] AIRFIT F20 Cushion REF [id number] CPAP SlimTube 6ft 15mm with 22mm cuffs REF [id number] CPAP Pollen Filters REF [id number] 2 felt pollen filter for ResMed Air 11 Continuous for sleep fluconazole 150 mg PO DAILY 10 days fluoxetine 40 mg PO DAILY fluoxetine 20 mg PO DAILY FreeStyle Lancets (lancets) three times perday for blood glucose monitoring NS FreeStyle Lite Meter (blood-glucose meter) As directed for blood glucose monitoring three times /day NS glucose (Dex4 Glucose) 16 grams (4 x 4 gram) PO Q15M PRN lancets check blood glucose 3 times daily losartan 25 mg PO DAILY metformin ER 500 mg PO DAILY omeprazole 20 mg PO BID pravastatin 40 mg PO BEDTIME Tobacco use date assessed: 06/16/25 Fall risk assessment: No Falls in past year Last assessed Fall Risk: 06/16/25 Dental Screening Dental Screen Date: 06/16/25 Did you have a dental visit in the last 12 months?: Yes Did you have a dental problem in the last 6 months where you did not have access to dental care?: No Was dental information given to patient?: Patient has dentist HPI HPI Comments History of Present Illness Details This is a 69-year-old male with a past medical history of obstructive sleep apnea on CPAP, uncontrolled type 2 diabetes, tinea cruris, hypertension and hyperlipidemia presenting with c/o biting his tongue. Reports that he has sleep apnea and wears a CPAP machine. A few nights ago he awoke with pain in the left side of his tongue. He wonders if he bit his tongue while he was sleeping. Shortly after this he developed a painful sensation in the left side of his throat and his neck. The pain radiates into his ear. He also endorses mucus in his throat. He denies any fever, chills, trouble swallowing, runny nose, cough. He does smoke a cigar every day and also drinks alcohol daily. He does not follow through on routine dental care. Physical Exam General: Well developed, well nourished, in no acute distress. Appears stated age. Head: Normocephalic, atraumatic. Ears: TM intact and clear bilat, EAC clear, Hearing aides bilat Eyes: Pupils are equal, round and reactive to light and accommodation. Conjunctivae are clear. Nose: Nares patent, turbinates mildly pale, no sinus tenderness Pharyx: uvula midline, no PND, L tonsillar enlargement w/o exudate or sores. No erythema. + ac adenopathy on the L; managing secretions, no hot potatoe voice. Lungs: Clear to auscultation bilaterally. No rales, rhonchi or wheeze noted. Good air flow in all walsh. Heart: Regular rate and rhythm. No murmurs, click, rubs or gallops are noted. Skin: PWD Discussion Notes I advised using cefadroxil, given the patient's penicillin allergy, rash in groin is the reaction, no anaphylaxis, addressing the concern of a possible underlying infection behind the left tonsil. The prescribed antibiotic, cefadroxil, is suitable and typically tolerated by individuals with a penicillin allergy. Prednisone has been recommended to reduce inflammation, with an advisory of a temporary increase in blood glucose levels due to diabetes, expected to normalize post-treatment. I advised that salt water gargles and a clean CPAP would aid in symptom management, and an ENT reevaluation would follow the initial treatment phase. Prednisone should be taken with food in the morning to prevent nocturnal insomnia, and cefadroxil dosages are to be taken twice daily for 7 days. If this tonsillar enlargement/abnormality persists, will place a referral to ENT. Risks include: smoking and etoh use. Planned a follow-up next week to assess symptom resolution. Patient was given time to ask questions. All questions were answered to their satisfaction. Assessment and Plan 1. Swollen Tongue - Cefadroxil and prednisone prescribed. Advising saltwater gargles and clean CPAP use. 2. Enlarged Left Tonsil - Monitor for resolution post-treatment. Consider ENT if unresolved. 3. Congestion - Suggest mouthwash use 4. Cigarette Smoking - Advise cessation considering health effects. 5. Diabetes - Monitor blood sugar, especially with prednisone treatment. Patient Instructions - Take prednisone 40 mg in the morning with food for 5 days. - Start cefadroxil as prescribed, twice daily for 14 days. - Do salt water gargles several times a day. - Ensure CPAP equipment is clean. - Avoid washing medications down with alcohol. - Return for follow-up next week or sooner if symptoms worsen. Consent Patient was informed and verbally consented to the use of an ambient scribe for clinic note documentation during this visit. Total time spent caring for the patient today was 30 minutes. This includes time spent before the visit reviewing the chart, time spent during the visit, and time spent after the visit on documentation, reviewing laboratory results, diagnostic imaging, medications, performing a medically necessary evaluation, counseling on diagnoses, care coordination, ordering appropriate tests, ordering appropriate medications, review of tests performed by other providers, reporting test results with the patient, communication with other healthcare providers. [facility] Medical History (Updated 05/17/25 @ 14:45 by Loan Guo MD) Diabetic nephropathy Hepatic steatosis Hyperlipidemia Lower extremity edema Obesity, Class III, BMI 40-49.9 (morbid obesity) Uncontrolled type 2 diabetes mellitus with hyperglycemia, with long-term current use of insulin Surgical History Hx of colonoscopy History of esophagogastroduodenoscopy (EGD) H/O discectomy Hx of appendectomy Family History Mother Diabetes Father Cardiovascular disease Social History Housing: House Patient Tobacco Use Status: Current everyday Tobacco user Tobacco use type: Cigar e-Cigarette/Vaping Use: Never Used Second Hand Smoke Exposure: No service: No Current occupational status: retired Current occupational exposures/hazards: No Cognitive needs: No Hearing needs: Yes Vision needs: Yes Questionnaire PHQ-9 Over the last 2 weeks, how often have you been bothered by any of the following problems? 1. Little interest or pleasure in doing things: not at all 2. Feeling down, depressed, or hopeless: not at all 3. Trouble falling or staying asleep, or sleeping too much: not at all 4. Feeling tired or having little energy: not at all 5. Poor appetite or overeating: not at all 6. Feeling bad about yourself - or that you are a failure or have let yourself or your family down: not at all 7. Trouble concentrating on things, such as reading the newspaper or watching television: not at all 8. Moving or speaking so slowly that other people could have noticed. Or the opposite - being so fidgety or restless that you have been moving around a lot more than usual: not at all 9. Thoughts that you would be better off or of hurting yourself in some way: not at all Total score: 0 Depression Screening Interpretation: Negative Depression Screening Done: Yes 80734 - PHQ-9 Billing: Yes Source: Developed by Drs. Ricardo Malin, Dee Mary, Fabio Coleman and colleagues, with an educational gerardo from [employer]. Thrive Questionnaire Date Thrive assessed: 06/16/25 I am a: Patient What is your living situation today?: I have a steady place to live Within the past 12 months, did the food you bought not last and you didn't have the money to get more?: Never true Within the past 12 months, did you worry whether your food would run out before you got money to buy more?: Never true Do you have trouble paying for medicines?: No Do you have trouble getting transportation to medical appointments?: No Do you have trouble paying your heating and electricity bill?: No Do you have trouble taking care of your child, family member or friend?: No Do you have trouble with day-to-day activities such as bathing, preparing meals, shopping, managing finances, etc.?: No Are you currently unemployed and looking for a job?: No Are you interested in more education?: No Please select the resources that you would like help with: None Currently or been in a relationship where the following occur: No concerns reported THRIVE Score: 0 AUDIT C Alcohol Use Questionnaire (AUDIT-C) 1. How often do you have a drink containing alcohol?: 2-3 times a week 2. How many drinks containing alcohol do you have on a typical day when you are drinking?: 1 or 2 3. How often do you have six or more drinks on one occasion?: Monthly Total Score: 5 ARELI-7 AMB Questionnaire ARELI-7 Date ARELI - 7 assessed: 06/16/25 Feeling nervous, anxious, or on edge: 0 = Not at all Not being able to stop or control worryin = Not at all Worrying too much about different things: 0 = Not at all Trouble relaxin = Not at all Being so restless that it is hard to sit still: 0 = Not at all Becoming easily annoyed or irritable: 0 = Not at all Feeling afraid as if something awful might happen: 0 = Not at all Total ARELI-7 score (0-4 normal; 5-9 mild; 10-14 moderate; 15-21 severe): 0 Source: Developed by Drs. Ricardo Malin, Dee Mary, Fabio Coleman and colleagues, with an educational gerardo from [employer]. ARELI-7 Assessment Billing ARELI-7 Assessment Tool: ARELI-7 Assessment 58928 Physical exam (Primary Care) Vital Signs: Last Vital Signs Temp 97.2 F 06/16/25 14:00 Pulse 72 06/16/25 14:00 Resp 13 06/16/25 14:00 BP 136/72 06/16/25 14:00 Pulse Ox 98 06/16/25 14:00 Oxygen Delivery Method Room Air 06/16/25 14:00 BMI result Body Mass Index 46.3 Tobacco/Smoking Status: Tobacco use Status Tobacco use date assessed 06/16/25 06/16/25 13:57 Patient Tobacco Use Status Current everyday Tobacco 06/16/25 13:57 Tobacco use type Cigar 06/16/25 13:57 e-Cigarette/Vaping Use Never Used 06/16/25 13:57 PHQ-9: PHQ-9 Score PHQ-9: Total score 0 06/16/25 13:57 Depression Screening Interpretation: Negative Thrive Assessment: Date of Thrive Assessment Date Thrive assessed 06/16/25 06/16/25 13:57 Currently or been in a relationship where the following occur: No concerns reported Coding Level of Care Code Est Pt Level 4 (45543) Complex EM visit Add On G2211 Diagnoses Type 2 diabetes mellitus with hyperglycemia, with long-term current use of insulin E11.65; Z79.4 Diabetes mellitus prison insulin use: with long chain dyeing machine operator use Diabetes mellitus complication status: with hyperglycemia Cigar smoker F17.290 Alcohol use F10.90 Tonsillar hypertrophy, unilateral J35.1 Cervical adenopathy R59.0 Additional Codes ARELI-7 Assessment Billing - ARELI-7 Assessment Tool: ARELI-7 Assessment 83741 ([id number]) PHQ-9 - 49123 - PHQ-9 Billing: Yes ([id number]) Assessment & Plan Assessment & Plan (1) Type 2 diabetes mellitus: Code(s): E11.9 - Type 2 diabetes mellitus without complications Category: Medical Qualifiers: Diabetes mellitus long 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 dyeing machine operator insulin use: with long chain dyeing machine operator use Diabetes mellitus complication status: with hyperglycemia Qualified Code(s): E11.65 - Type 2 diabetes mellitus with hyperglycemia; Z79.4 - tank terminal gauger (current) use of insulin (2) Cigar smoker: Code(s): F17.290 - Nicotine dependence, other tobacco product, uncomplicated Category: Medical (3) Alcohol use: Code(s): F10.90 - Alcohol use, unspecified, uncomplicated Category: Medical (4) Tonsillar hypertrophy, unilateral: Code(s): J35.1 - Hypertrophy of tonsils (5) Cervical adenopathy: Code(s): R59.0 - Localized enlarged lymph nodes Plan . Medications: New prednisone 40 mg (2 x 20 mg) PO DAILY 10 tabs 0RF cefadroxil 500 mg PO BID 14 caps 0RF Patient Instructions: - Take prednisone 40 mg in the morning with food for 5 days. - Start cefadroxil as prescribed, twice daily for 7 days. - Do salt water gargles several times a day. - Ensure CPAP equipment is clean. - Avoid washing medications down with alcohol. - Return for follow-up next week or sooner if symptoms worsen.
[2025-06-16 14:00] VITALS: BP 136/72; PULSE 72; RESP 13; TEMP 36.2; O2SAT 98; BMI 46.3
--- OUTSIDE RECORDS SUMMARY | 2025-06-16 14:43 | XMS_ITS | Clinical Summary ---
Author Organization [facility] Address [address] [address] Phone Care Team Providers Care Labor Relations Analyst Name Role Phone Lizette Anderson MD Primary Care Provider [phone] Allergies Active Allergy Reactions Criticality Noted Date [...] 2024 07/23/2023, 07/19/2022, 08/29/2021, Additional history exists INFLUENZA VACCINE (#1) 2025 3, 08/01/2022, 07/25/2020 PNEUMOCOCCAL VACCINES (50+ years) Completed 10/31/2022, 10/13/2014 [...] Medical Devices Not on file Insurance [employer] PPO MEDICARE REPLACEMENT MEDICARE PART A & B [employer] PPO MEDICARE REPLACEMENT MEDICARE PART A & B [facility] MEDICARE REPLACEMENT MEDICARE PART A & B [employer] PPO MEDICARE REPLACEMENT MEDICARE PART A & B [employer] PPO MEDICARE REPLACEMENT MEDICARE PART A & B [employer] PPO MEDICARE REPLACEMENT MEDICARE PART A & B Care Teams Labor Relations Analyst Relationship Specialty Start Date End Date Lizette Anderson MD PCP - General 10/16/17 Additional Source Comments The information contained in this document represents components of the legal health record. It is not the complete legal health record.[facility]
== END 2025-06-16 14:25 | disposition home or self-care (01) ==
LOC: HO.HMCFM 13:51
PROVIDERS: PCP Internal Medicine; Visit Provider Nurse Practitioner Family
DX: E11.65 Type 2 diabetes mellitus with hyperglycemia (principal); Z79.4 Long term (current) use of insulin; F17.290 Nicotine dependence, other tobacco product, uncomplicated; F10.90 Alcohol use, unspecified, uncomplicated; J35.1 Hypertrophy of tonsils; R59.0 Localized enlarged lymph nodes

== ENCOUNTER → 2025-06-16 13:50 | Outpatient (BNVA) | payer OTHER, SELFPAY | PROVIDERS: PCP Internal Medicine; Visit Provider Nurse Practitioner Family | DX: G47.33 Obstructive sleep apnea (adult) (pediatric) (principal); E11.65 Type 2 diabetes mellitus with hyperglycemia; I10 Essential (primary) hypertension; E78.5 Hyperlipidemia, unspecified; R59.0 Localized enlarged lymph nodes; J35.1 Hypertrophy of tonsils; F17.290 Nicotine dependence, other tobacco product, uncomplicated; F10.90 Alcohol use, unspecified, uncomplicated; Z79.4 Long term (current) use of insulin; Z99.89 Dependence on other enabling machines and devices | CPT/HCPCS: 96127 ==

== ENCOUNTER 2025-07-09 11:33 | Outpatient (AMB) | payer OTHER, SELFPAY ==
--- NOTE | 2025-07-09 11:34 | MHC.OFFVIS ---
Vital Signs 07/09/25 11:38 Height 6 ft Weight 340 lb 2.772 oz BMI 46.1 BP 118/64 Blood Pressure Location Rt brachial Position Sitting Pulse 76 Pulse Source Pulse Oximeter Pulse Oximetry (%) 97 Oxygen Delivery Method Room Air Intake Visit Reasons: Type II DM Intake Note: Patient present today to follow up on Type 2 Diabetes Mellitus. Last Diabetic Eye exam: 2023, needs to make appointment Last Podiatry Visit: Does not see a Fish Skinning Machine Feeder Random Glucose: 184 mg/dl HgA1C: 6.8% 06/10/2025 Geodetic Survey Director Required: No Accompanied by: Spouse Allergies Penicillins (PENICILLINS) Allergy (Unknown, Verified 07/09/25 11:39) UNKNOWN insulin glargine (From Lantus U-100 Insulin) Allergy (Verified 07/09/25 11:39) Rash Medication List - Last Reconciled 07/09/25 by KOMAL Allison aspirin (Adult Low Dose Aspirin) 81 mg PO DAILY BD Kathy 2nd Gen Pen Needle (pen needle, diabetic) 1 ea miscellaneous .once daily NS blood-glucose sensor (FreeStyle Sonya 3 Sensor device) apply new sensor every 14 days blood-glucose sensor (FreeStyle Sonya 3 Plus Sensor device) Apply 1 new sensor every 15 days as directed to monitor blood glucose continuously. 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 chlorthalidone 25 mg PO DAILY clotrimazole-betamethasone 1-0.05 % 1 appl topical BID 4 weeks CPAP (CPAP Machine/Device) AIRFIT F20 head medium REF [id number] AIRFIT F20 [place]ushion REF [id number] CPAP SlimTube 6ft 15mm with 22mm cuffs REF [id number] CPAP Pollen Filters REF [id number] 2 felt pollen filter for ResMed Air 11 Continuous for sleep fluconazole 150 mg PO DAILY 10 days fluoxetine 20 mg PO DAILY FreeStyle Lancets (lancets) three times perday for blood glucose monitoring NS FreeStyle Lite Meter (blood-glucose meter) As directed for blood glucose monitoring three times /day NS glucose (Dex4 Glucose) 16 grams (4 x 4 gram) PO Q15M PRN lancets check blood glucose 3 times daily losartan 25 mg PO DAILY metformin ER 1,500 mg (3 x 500 mg) PO DAILY 90 days omeprazole 20 mg PO BID pravastatin 40 mg PO BEDTIME HPI Comments Details: This is a 69-year-old male with a past medical history of obstructive sleep apnea on CPAP, uncontrolled type 2 diabetes, tinea cruris, hypertension and hyperlipidemia presenting for follow up. He is here with his , Hannah. Hemoglobin A1c 6.8% 06/10/2025. Reviewed CGM data Average glucose 172 G LA 7.4% Glucose variability 50.1% Very high 0% High 33% Target range 67% 0% hypoglycemia Patient has hyperglycemia postprandially and some hyperglycemia overnight. Current regimen: Metformin ER 500 mg. He is up to 3 tablets daily now. He noticed higher blood sugars after recent throat infection that require treatment with antibiotics and prednisone. Past medications: Tresiba and Actos discontinued due to weight gain. Glipizide was stopped to start insulin. Lantus discontinued due to skin rash. He had diarrhea on immediate release metformin in the past. He was on Januvia, but he reports this also caused adverse side effects. GLP ones are too expensive. Compliance issues: None. He does not exercise, but he has drastically changed his diet. He is eating much healthier. It is a high-protein, low-carbohydrate diet. Decreased alcohol consumption. Hypoglycemia symptoms: None Hyperglycemia symptoms: None Eye exam: Up-to-date and no retinopathy per patient Microvascular complications: neuropathy, nephropathy (CKD stage IIIA and microalbuminuria). Creatinine and GFR 1.15 and > 60 respectively 06/10/2025. Macrovascular complications: None Hypertension: treated with chlorthalidone 25 mg and losartan 25 mg daily. Hyperlipidemia: Treated with pravastatin 40 mg ROS: Constitutional: No unexplained weight loss, fevers, chills or fatigue. Eyes: No vision changes Respiratory: No shortness of breath Cardiovascular: No chest pain Gastrointestinal: No anorexia, nausea, vomiting or diarrhea. No abdominal pain Neurologic: +numbness, tingling and burning in his feet. Skin: No open wound. Physical exam: Constitutional: Alert, in no distress. Neck: Supple, Full range of motion. No lymphadenopathy. No palpable thyroid masses or enlargement. Respiratory: Clear to auscultation. Cardiovascular: S1 S2 regular. No murmurs. [facility] Medical History (Updated 05/17/25 @ 14:45 by Loan Guo MD) Lower extremity edema Obesity, Class III, BMI 40-49.9 (morbid obesity) Hepatic steatosis Hyperlipidemia Uncontrolled type 2 diabetes mellitus with hyperglycemia, with long-term current use of insulin Diabetic nephropathy Surgical History Hx of colonoscopy History of esophagogastroduodenoscopy (EGD) H/O discectomy Hx of appendectomy Family History Mother Diabetes Father Cardiovascular disease Social History Housing: House Patient Tobacco Use Status: Current everyday Tobacco user Tobacco use type: Cigar e-Cigarette/Vaping Use: Never Used Second Hand Smoke Exposure: No service: No Current occupational status: retired Current occupational exposures/hazards: No Cognitive needs: No Hearing needs: Yes Vision needs: Yes Physical Exam Vital Signs: Last Vital Signs Pulse 76 07/09/25 11:38 BP 118/64 07/09/25 11:38 Pulse Ox 97 07/09/25 11:38 Oxygen Delivery Method Room Air 07/09/25 11:38 BMI result Body Mass Index 46.1 Office Procedures Glucose Monitoring Details Details: See HPI 21680 - Glucose monitoring, continuous-physician I&R Procedure code (CPT) selection complete Results Reviewed Results Reviewed: Laboratory Last Values Glucose (Clinic) 184 mg/dL (60-115) H 07/09/25 11:47 Laboratory Tests 04/28/24 11/19/24 10:57 10:35 Creatinine 1.22 Estimated GFR 59 AST 19 ALT 21 Triglycerides 55 Cholesterol 171 LDL Cholesterol, Calc 109 H HDL Cholesterol 51 Urine Creatinine 28.97 Urine Microalbumin 13.0 Microalb/Creat Ratio 44.8 H Assessment & Plan Assessment & Plan (1) Diabetic nephropathy: Code(s): E11.21 - Type 2 diabetes mellitus with diabetic nephropathy Category: Medical Qualifiers: Diabetes mellitus type: type 2 Qualified Code(s): E11.21 - Type 2 diabetes mellitus with diabetic nephropathy (2) Uncontrolled type 2 diabetes mellitus with hyperglycemia, with long-term current use of insulin: Code(s): E11.65 - Type 2 diabetes mellitus with hyperglycemia; Z79.4 - termite exterminator (current) use of insulin Category: Medical (3) Hypertension: Code(s): I10 - Essential (primary) hypertension Category: Medical Qualifiers: Hypertension type: primary hypertension Qualified Code(s): I10 - Essential (primary) hypertension (4) Hyperlipidemia: Code(s): E78.5 - Hyperlipidemia, unspecified Category: Medical Qualifiers: Hyperlipidemia type: pure hypercholesterolemia Qualified Code(s): E78.00 - Pure hypercholesterolemia, unspecified (5) Obesity, Class III, BMI 40-49.9 (morbid obesity): Code(s): E66.813 - Obesity, class 3 Category: Medical Plan In summary this is a 69-year-old male with suboptimally controlled type 2 diabetes with microvascular complications. Discussed pathophysiology of Type II Diabetes Mellitus with the patient in detail.? I explained the termite exterminator risks and complications associated with uncontrolled diabetes including nephropathy, neuropathy, peripheral vascular disease, retinopathy, increased risk of heart disease and stroke.? Discussed lifestyle modification with the patient. Patient declined referral to dietitian and clinical systems educator. He was recently treated for an at a throat infection and on prednisone and antibiotics which resulted in some hyperglycemia. He is off the medications now and doing fine. Continue metformin ER 1500 mg daily. He will send the report from his CGM via the patient portal in a month for me to review. He is tolerating metformin without side effects. Bring glucometer to all appointments. Advanced to Sonya 3+ since Sonya 3 has been discontinued. Continue pravastatin to 40 mg daily. Continue chlorthalidone for hypertension. Continue losartan for hypertension and renal protection. Follow up in 3 months. Orders: Orders AMB Glucose Monitoring Today E11.9 - Type 2 diabetes mellitus without complications Medications: New blood-glucose sensor (FreeStyle Sonya 3 Plus Sensor device) Apply 1 new sensor every 15 days as directed to monitor blood glucose continuously. 2 ea 11RF E11.65 - Type 2 diabetes mellitus with hyperglycemia, Z79.4 - termite exterminator (current) use of insulin Changed From metformin ER 500 mg PO DAILY 90 tabs 0RF To metformin ER 1,500 mg (3 x 500 mg) PO DAILY 270 tabs 1RF 90 days Discontinued fluoxetine Discontinued Reason: No Longer Medically Relevant 40 mg PO DAILY 90 caps 3RF Coding Level of Care Code Est Pt Level 4 (48803) Complex EM visit Add On G2211 Diagnoses Diabetic nephropathy associated with type 2 diabetes mellitus E11.21 Diabetes mellitus type: type 2 Uncontrolled type 2 diabetes mellitus with hyperglycemia, with long-term current use of insulin E11.65; Z79.4 Primary hypertension I10 Hypertension type: primary hypertension Pure hypercholesterolemia E78.00 Hyperlipidemia type: pure hypercholesterolemia Obesity, Class III, BMI 40-49.9 (morbid obesity) E66.813 CPT Codes Details - CPT: 85301 - Glucose monitoring, continuous-physician I&R ([id number])
[2025-07-09 11:38] VITALS: BP 118/64; PULSE 76; O2SAT 97; BMI 46.1
[2025-07-09 11:51] LABS: Glucose, Whole Blood 184 mg/dL (60-115)
--- OUTSIDE RECORDS SUMMARY | 2025-07-09 12:10 | XMS_ITS | Clinical Summary ---
Author Organization [facility] Address [address] [address] Phone Care Team Providers Care Financial Management Name Role Phone Lizette Anderson MD Primary Care Provider [phone] Allergies Active Allergy Reactions Criticality Noted Date [...] series) 2016 Adult Td,Tdap Booster 01/15/2023 01/15/2013 INFLUENZA VACCINE (#1) 2025 3, 08/01/2022, 07/25/2020 COVID-19 VACCINE ( season) 2025 07/23/2023, 07/19/2022, 08/29/2021, Additional history exists PNEUMOCOCCAL [...] MEDICARE REPLACEMENT MEDICARE PART A & B [facility] MEDICARE REPLACEMENT MEDICARE PART A & B [employer] PPO MEDICARE REPLACEMENT MEDICARE PART A & B [employer] PPO MEDICARE REPLACEMENT MEDICARE PART A & B [employer] PPO MEDICARE REPLACEMENT MEDICARE PART A & B Care Teams Financial Management Relationship Specialty Start Date End Date Lizette Anderson MD PCP - General 10/16/17 Additional Source Comments The information contained in this document represents components of the legal health record. It is not the complete legal health record.[facility]
== END 2025-07-09 12:42 | disposition home or self-care (01) ==
LOC: HO.ENCR 11:33
PROVIDERS: PCP Internal Medicine; Visit Provider Physician Assistant Medical
DX: E11.21 Type 2 diabetes mellitus with diabetic nephropathy (principal); E11.65 Type 2 diabetes mellitus with hyperglycemia; Z79.4 Long term (current) use of insulin; I10 Essential (primary) hypertension; E78.00 Pure hypercholesterolemia, unspecified; E66.813 Obesity, class 3

== ENCOUNTER → 2025-07-09 11:33 | Outpatient (BNVA) | payer OTHER, SELFPAY | PROVIDERS: PCP Internal Medicine; Visit Provider Physician Assistant Medical | DX: E11.65 Type 2 diabetes mellitus with hyperglycemia (principal); E11.40 Type 2 diabetes mellitus with diabetic neuropathy, unspecified; E11.21 Type 2 diabetes mellitus with diabetic nephropathy; E11.22 Type 2 diabetes mellitus with diabetic chronic kidney disease; N18.31 Chronic kidney disease, stage 3a; R80.9 Proteinuria, unspecified; I10 Essential (primary) hypertension; E78.00 Pure hypercholesterolemia, unspecified; E66.813 Obesity, class 3; Z68.42 Body mass index [BMI] 45.0-49.9, adult; Z79.84 Long term (current) use of oral hypoglycemic drugs | CPT/HCPCS: 82947 ==

== ENCOUNTER 2025-07-16 11:06 | Outpatient (AMB) | payer OTHER, SELFPAY ==
[2025-07-16 11:10] VITALS: BP 118/52; PULSE 83; RESP 16; TEMP 37.1; O2SAT 96; BMI 45.9
--- NOTE | 2025-07-16 11:10 | MHC.PC.OV ---
Vital Signs 07/16/25 11:10 Height 6 ft Weight 338 lb 8 oz BMI 45.9 BP 118/52 L Blood Pressure Location Lt brachial Position Sitting Respiration 16 Pulse 83 Pulse Source Pulse Oximeter Temp 98.7 F Temp Source Oral Pulse Oximetry (%) 96 Oxygen Delivery Method Room Air Intake Visit Reasons: DM - Was due to come in last year for appt. Intake Note: Diabetes follow up Allergies Penicillins (PENICILLINS) Allergy (Unknown, Verified 07/16/25 11:12) UNKNOWN insulin glargine (From Lantus U-100 Insulin) Allergy (Verified 07/16/25 11:12) Rash Tobacco use date assessed: 07/16/25 Fall risk assessment: No Falls in past year Last assessed Fall Risk: 07/16/25 Dental Screening Dental Screen Date: 06/16/25 HPI HPI Comments History of Present Illness Details This is a 68 year old male with a past medical history of type 2 dm, htn, obesity, fatty liver, depression presenting for follow up Type 2 DM: Metformin 500 XR-1500mg daily. Following with endocrinology. A1C 6.4% Is now eating an extremely low carbohydrate diet. He has lost a few pounds CV: On chlorthalidone 25mg daily, losartan 25mg daily, pravastatin. BP controlled. Denies chest pain, dizziness. BH: stable on prozac Colonoscopy-Last colo 2022 - [facility]. 1 T.A in descending and 3 hyperplastic sigmoid polyps. Declines flu vaccination ROS see HPI PHYSICAL EXAM: GENERAL: Alert and oriented x 3. NAD EYES: EOMI. Anicteric. HENT: Moist mucous membranes. No scleral icterus. No cervical lymphadenopathy. LUNGS: Clear to auscultation bilaterally. CARDIOVASCULAR: Regular rate and rhythm. No JVD. ABDOMEN: Soft, non-tender +bs EXTREMITIES: No edema. Non-tender. SKIN: No rashes or lesions. Warm. NEUROLOGIC: No focal neurological deficits. CN II-XII grossly intact PSYCHIATRIC: Cooperative. Appropriate mood and affect [facility] Medical History Lower extremity edema Obesity, Class III, BMI 40-49.9 (morbid obesity) Hepatic steatosis Hyperlipidemia Uncontrolled type 2 diabetes mellitus with hyperglycemia, with long-term current use of insulin Diabetic nephropathy Surgical History Hx of colonoscopy History of esophagogastroduodenoscopy (EGD) H/O discectomy Hx of appendectomy Family History Mother Diabetes Father Cardiovascular disease Social History Housing: House Patient Tobacco Use Status: Current everyday Tobacco user Tobacco use type: Cigar Years Smoked: 30 e-Cigarette/Vaping Use: Never Used Second Hand Smoke Exposure: No service: No Current occupational status: retired Current occupational exposures/hazards: No Cognitive needs: No Hearing needs: Yes Vision needs: Yes Questionnaire Thrive Questionnaire Date Thrive assessed: 06/15/25 I am a: Patient What is your living situation today?: I have a steady place to live Within the past 12 months, did the food you bought not last and you didn't have the money to get more?: Never true Within the past 12 months, did you worry whether your food would run out before you got money to buy more?: Never true Do you have trouble paying for medicines?: No Do you have trouble getting transportation to medical appointments?: No Do you have trouble paying your heating and electricity bill?: No Do you have trouble taking care of your child, family member or friend?: No Do you have trouble with day-to-day activities such as bathing, preparing meals, shopping, managing finances, etc.?: No Are you currently unemployed and looking for a job?: No Are you interested in more education?: No Please select the resources that you would like help with: None Currently or been in a relationship where the following occur: No concerns reported THRIVE Score: 0 AUDIT C Alcohol Use Questionnaire (AUDIT-C) 1. How often do you have a drink containing alcohol?: 4 or more times a week 2. How many drinks containing alcohol do you have on a typical day when you are drinking?: 1 or 2 3. How often do you have six or more drinks on one occasion?: Never Total Score: 4 ARELI-7 AMB Questionnaire ARELI-7 Date ARELI - 7 assessed: 06/16/25 Source: Developed by Drs. Ricardo Malin, Dee Mary, Fabio Coleman and colleagues, with an educational gerardo from [employer]. Physical exam (Primary Care) Vital Signs: Last Vital Signs Temp 98.7 F 07/16/25 11:10 Pulse 83 07/16/25 11:10 Resp 16 07/16/25 11:10 BP 118/52 L 07/16/25 11:10 Pulse Ox 96 07/16/25 11:10 Oxygen Delivery Method Room Air 07/16/25 11:10 BMI result Body Mass Index 45.9 Tobacco/Smoking Status: Tobacco use Status Tobacco use date assessed 07/16/25 07/16/25 11:17 Patient Tobacco Use Status Current everyday Tobacco 07/16/25 11:17 Tobacco use type Cigar 07/16/25 11:17 e-Cigarette/Vaping Use Never Used 07/16/25 11:17 Thrive Assessment: Date of Thrive Assessment Date Thrive assessed 06/15/25 07/16/25 11:17 Currently or been in a relationship where the following occur: No concerns reported Coding Level of Care Code Est Pt Level 4 (89307) Diagnoses Type 2 diabetes mellitus with hyperglycemia, with long-term current use of insulin E11.65; Z79.4 Diabetes mellitus detention insulin use: with intermodal dispatcher use Diabetes mellitus complication status: with hyperglycemia Hepatic steatosis K76.0 Diabetic nephropathy associated with type 2 diabetes mellitus E11.21 Diabetes mellitus type: type 2 Pure hypercholesterolemia E78.00 Hyperlipidemia type: pure hypercholesterolemia Assessment & Plan Assessment & Plan (1) Type 2 diabetes mellitus: Code(s): E11.9 - Type 2 diabetes mellitus without complications Category: Medical Qualifiers: Diabetes mellitus intermodal dispatcher insulin use: with intermodal dispatcher use Diabetes mellitus complication status: with hyperglycemia Qualified Code(s): E11.65 - Type 2 diabetes mellitus with hyperglycemia; Z79.4 - terminal gauger (current) use of insulin (2) Hepatic steatosis: Code(s): K76.0 - Fatty (change of) liver, not elsewhere classified Category: Medical (3) Diabetic nephropathy: Code(s): E11.21 - Type 2 diabetes mellitus with diabetic nephropathy Category: Medical Qualifiers: Diabetes mellitus type: type 2 Qualified Code(s): E11.21 - Type 2 diabetes mellitus with diabetic nephropathy (4) Hyperlipidemia: Code(s): E78.5 - Hyperlipidemia, unspecified Category: Medical Qualifiers: Hyperlipidemia type: pure hypercholesterolemia Qualified Code(s): E78.00 - Pure hypercholesterolemia, unspecified Plan Diabetes is well controlled. He continues to follow with endocrinology CV: Blood pressure is at goal on meds. Encouraged continue dietary compliance. GERD stable on PPI. He does not want to follow up with the liver elastography at this time
--- OUTSIDE RECORDS SUMMARY | 2025-07-16 12:51 | XMS_ITS | Clinical Summary ---
Author Organization [facility] Address [address] [address] Phone Care Team Providers Care Hr Clerk Name Role Phone Lizette Anderson MD Primary Care Provider [phone] Allergies Active Allergy Reactions Criticality Noted Date [...] MEDICARE PART A & B Care Teams Hr Clerk Relationship Specialty Start Date End Date Lizette Anderson MD PCP - General 10/16/17 Additional Source Comments The information contained in this document represents components of the legal health record. It is not the complete legal health record.[facility]
== END 2025-07-16 11:33 | disposition home or self-care (01) ==
LOC: HO.HMCFM 11:06
PROVIDERS: PCP Internal Medicine; Visit Provider Internal Medicine
DX: E11.65 Type 2 diabetes mellitus with hyperglycemia (principal); Z79.4 Long term (current) use of insulin; K76.0 Fatty (change of) liver, not elsewhere classified; E11.21 Type 2 diabetes mellitus with diabetic nephropathy; E78.00 Pure hypercholesterolemia, unspecified